=== PATIENT | female | born 1935 | race Caucasian/White ===

== ENCOUNTER 2016-12-30 21:34 | Emergency (ER) | payer MEDICARE ==
[~2016-12-30] VITALS: Ht 170.2 cm; Wt 109.1 kg
[~2016-12-30 21:34] MED LIST: ALB083NB3 NEB; AMLO10TA5 PO; ASPI81TA40 PO; CETI-263 PO; CHOL400T41 PO; CLOP75TA14 PO; FURO20TA PO; HYDR-3479 PO; HYDR25TA4 PO; LEVO50TA83 PO; LOSA25TA21 PO; METO100T PO; NITR0.4T6 SL; NYST1POW8 MC; POTA10CA42 PO; RANI75TA21 PO; ROSU40TA PO; SERT100T PO; SYMINH IH; TIOT18CA INH
[2016-12-30 22:02] VITALS: BP 154/64; PULSE 55; RESP 20; O2SAT 90
[2016-12-30 22:23] LABS: Mean Corpuscular Volume 88.5 fL (81-100); Platelet Count 144 bil/L (150-400)
[2016-12-30 22:24] LABS: BASOPHILS % (AUTO) 0.5 % (0-3); EOSINOPHILS % (AUTO) 2.7 % (0-5); MONOCYTES % (AUTO) 10.2 % (4-12); NEUTROPHILS % (AUTO) 73.6 % (40-74)
[2016-12-30 22:41] LABS: TROPONIN T 0.01 ug/L (0.0-0.011)
[2016-12-30 22:54] VITALS: BP 128/70; PULSE 51; RESP 18; O2SAT 91
--- NOTE | 2016-12-30 23:14 | ED.REPORT ---
HPI-Chest Pain 40 and Over Date of Service Dec 30, 2016 ED Provider: Nate Churchill MD An 81 year old female with a history of HTN and heart bypass surgery presents to the ED complaining of intermittent chest pain onset 3 days ago described as shooting that originally was in the left side of her chest but has since been present in the right side of her chest as well. The patient had massive indigestion after dinner earlier today. She feels like food is still in her throat and reports that her throat feels hot. Associated symptoms include SOB.She denies any dysphagia or cold sweats. Chest pain has gotten better since patient arrived, but her throat still feels hot. She is accompanied by her daughter. Nursing Notes Stated Complaint: CHEST PAIN,SOB Chief Complaint: Chest Pain Nursing Notes Reviewed: Yes Allergies: Coded Allergies: amoxicillin (Verified Allergy, Intermediate, rash, 12/30/16) doxycycline (Verified Allergy, Intermediate, itching rash, 12/30/16) Scheduled Albuterol-Expunged Drug, Do Not Renew! (Albuterol-Expunged Drug, Do Not Renew!) 2.5 Mg/3 Ml Nebu 1 INH NEB Q4HP AmLODIPine-Expunged Drug, Do Not Renew! (AmLODIPine-Expunged Drug, Do Not Renew! ) 10 Mg Tablet 10 MG PO DAILY Aspirin-Expunged Drug, Do Not Renew! (Aspirin-Expunged Drug, Do Not Renew!) 81 Mg Tab.chew 81 MG PO DAILY Budesonide/Formoterol 160-4.5 mcg Inh (Symbicort 160-4.5 mcg Inh) 1 Puff Inha 1 PUFF IH BID CHOLECALCIFEROL-Expunged Drug, Do Not Renew! (VITAMIN D-Expunged Drug, Do Not Renew!) 400 Unit Tablet 1,000 UNIT PO DAILY Cetirizine HCl (Cetirizine HCl) 10 Mg Tablet 10 MG PO HS Clopidogrel-Expunged Drug, Do Not Renew! (Plavix-Expunged Drug, Do Not Renew!) 75 Mg Tablet 75 MG PO DAILY Furosemide-Expunged Drug, Do Not Renew! (Furosemide-Expunged Drug, Do Not Renew! ) 20 Mg Tablet 20 MG PO DAILY Hydrochlorothiazide-Expunged, Do Not Renew! (Hydrochlorothiazide-Expunged, Do Not Renew!) 25 Mg Tablet 25 MG PO DAILY Levothyroxine-Expunged Drug, Do Not Renew! (Synthroid-Expunged Drug, Do Not Renew!) 50 Mcg Tablet 50 MCG PO DAILY Losartan-Expunged Drug, Do Not Renew! (Losartan-Expunged Drug, Do Not Renew!) 25 Mg Tablet 25 MG PO DAILY Metoprolol Tart-Expunged Drug, Do Not Renew! (Metoprolol Tart-Expunged Drug, Do Not Renew!) 100 Mg Tablet 100 MG PO DAILY Potassium Chloride (Potassium Chloride) 10 Meq Capsule.er 10 MEQ PO DAILY TAKE WITH FOOD Ranitidine Hcl (Zantac 75) 75 Mg Tablet 75 MG PO DAILY Rosuvastatin-Expunged Drug, Do Not Renew! (Crestor-Expunged Drug, Do Not Renew! ) 40 Mg Tablet 40 MG PO DAILY Sertraline-Expunged Drug, Choose New Med! (Sertraline-Expunged Drug, Choose New Med!) 100 Mg Tablet 100 MG PO DAILY Tiotropium Br-Expunged Drug, Do Not Renew! (Spiriva-Expunged Drug, Do Not Renew! ) 18 Mcg/Puff Pack [address] capsule into center of chamber; close mouthpiece; press and release the piercing button only once. Exhale completely then Inhale and holdbreath aslong as is comfortable; repeat once more before discarding thecapsule. Scheduled PRN Hydrocodone/Acetaminophen (Vicodin 5-300 mg Tablet) 1 Each Tablet 1 EACH PO Q4 PRN PRN For Pain Miscellaneous Medications Nitroglycerin SL (Nitroglycerin SL) 0.4 Mg Tab.subl 0.4 MG SL Nystatin (Nystatin) 1 Each Powder.ea. 1 EACH General Time Seen by MD: 23:12 Chief Complaint Chest pain Hx Obtained From: Patient, Other family... (daughter) Arrived By: Walk-in Sudden in Onset?: No Onset Occurred: 3 days ago Symptom Duration: Intermittent Severity: Current: Moderate Severity: Maximum: Moderate Recent Healthcare: No recent doctor visit Similar Sx Previous: No Past Medical History Past Medical History Notes: abdominal hernia Past Medical History 1. Hypertension. 2. Hyperlipidemia. 3. Hypothyroidism. 4. COPD on steroid inhaler. 5. Osteoarthritis. 6. Varicose vein stripping. 7. Lower-extremity edema. 8. Appendectomy. 9. Previous CVAs. 10. B12 deficiency. 11. History of DVT. 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 Throat feels hot. Denies dysphagia. Denies cold sweats. Respiratory: Reports: Shortness of breath Cardiovascular: Reports: Chest pain Complete sys rev & neg: except as marked. Physical Exam Physical Exam Notes: Initial Vital Signs Vital Signs (First) Date Time Temp Pulse Resp B/P Pulse Ox O2 Delivery O2 Flow Rate FiO2 12/30/16 22:02 36.8 55 20 154/64 90 Room Air 12/30/16 22:54 2 Initial VS: Reviewed, Vital signs normal General/Constitutional: Awake, Alert Respiratory / Chest: Atraumatic, Breath sounds NL, Breath sounds = bilat, No respiratory distress, No rales, No rhonchi, No wheezing Cardiovascular: Heart rate NL, Regular rhythm, Heart sounds NL, No gallop, No murmurs, No rubs 1+ pitting edema in ankles to about mid calf. Abdomen: No guarding, No rebound Neck: No JVD Skin: Warm, Dry Neurologic: Oriented X3, Speech NL Head / Eyes: Atraumatic, Normocephalic, PERRL, EOMI Upper Extremity / MS: Atraumatic, Full range of motion Interpretation & Diagnostics Lab Results Interpretation Result Diagram: 12/30/16 2210 12/30/16 2210 Test 12/30/16 22:10 12/31/16 00:30 White Blood Count 8.4th/mm3 (3.8-10.1) Red Blood Count 5.20mil/mm3 (3.90-5.20) Hemoglobin 15.6g/dL (12.0-15.6) Hematocrit 46.0% (35.0-46.0) Mean Corpuscular Volume 88.5fL (81-100) Mean Corpuscular Hemoglobin 30.0pg (27.0-35.0) Mean Corpuscular Hemoglobin Concent 33.9% (32.0-37.0) Red Cell Distribution Width 13.8% (12.3-15.4) Platelet Count 144bil/L (150-400) Neutrophils (%) (Auto) 73.6% (40-74) Lymphocytes (%) (Auto) 12.9% (14-46) Monocytes (%) (Auto) 10.2% (4-12) Eosinophils (%) (Auto) 2.7% (0-5) Basophils (%) (Auto) 0.5% (0-3) Band Neutrophils % 0% (1-5) Sodium Level 141mEq/L (134-144) Potassium Level 4.3mEq/L (3.5-5.2) Chloride Level 104mEq/L (97-108) Carbon Dioxide Level 22mmol/L (18-29) Blood Urea Nitrogen 15mg/dL (8-27) Creatinine 0.95mg/dL (0.57-1.00) Estimat Glomerular Filtration Rate 80mL/min (>59) Glucose Level 92mg/dL (60-99) Calcium Level 9.7mg/dL (8.5-10.1) Magnesium Level 2.0mg/dL (1.6-2.6) Total Bilirubin 0.8mg/dL (0.0-1.2) Aspartate Amino Transf (AST/SGOT) 19U/L (0-50) Alanine Aminotransferase (ALT/SGPT) 11U/L (0-32) Alkaline Phosphatase 78U/L (25-165) Total Protein 6.4g/dL (6.4-8.4) Albumin 4.0g/dL (3.4-5.0) Hold Stubbs Top Tube Received (Received) Troponin T 0.010ug/L (0.0-0.011) Lab values outside NL range: no clinical significance. Lab Results Interpretation: Troponin negative 2 ECG Interpretation ECG Interpretation: Rate is 56. No acute changes. Time: 22:01 Interpreted by: ED physician ECG Interpretation: Rate is 52. Sinus rhythm. Incomplete right bundle branch block. Low voltage, precordial leads. LVH with IVCD and secondary repol abnrm. Unchanged. Time: 00:14 Interpreted by: ED physician X-Ray Chest Interpretation Chest Xray Interpretation: IMPRESSION: Normal 12/30/2016, 2344 Interpretation / Wet Read by: Wet read ED physician Re-Eval/Medical Decision Med Decision/Clinical Course 81-year-old female with a history of coronary artery disease presents with burning pain in her upper sternal and suprasternal area. Chest x-ray, EKG 2, and troponin 2 are all negative. Her burning pain in her upper esophagus improved markedly with Mylanta. I do not feel this pain represents cardiac event. She will be discharged home on antacids and well return if she has recurrent or persistent symptoms. Source of Hx: Old records Time of Eval: 23:55 Re-Evaluation/Progress Note: Rechecked patient and explained normal test results. Explained plan to perform repeat troponin test. Patient denies any current discomfort and is swallowing ok. Her throat still feels strange. Time of Eval: 01:35 Re-Evaluation/Progress Note: Explained repeat test results. Explained diagnosis, and plan for discharge. Patient understands and agrees with the plan. All questions addressed. Counseled Regarding: Diagnosis, Lab results, Need for follow-up, When/why to return to ED Discharge & Departure Primary Impression: Chest pain with low risk of acute coronary syndrome Additional Impression: Esophageal problem Disposition: Home Discharge Condition All VS Reviewed: Yes Condition: Stable Patient Instructions: Chest Pain (ED) Additional Instructions: Your chest x-ray, EKG 2, and troponin heart enzyme test 2 are all negative. This pain does not appear to be due to your heart. I suspect that there is esophageal irritation. Continue antacids. Follow-up with your regular doctor as needed. Return here if you worsen significantly over the weekend. Referrals: Kadie Angel MD (PCP) Ximena Attestation Portions of this note were transcribed by Naga Pike. I, Dr. Churchill personally performed the history, physical exam and medical decision-making; I reviewed and confirmed the accuracy of the information in the transcribed note. Signed by: Ximena Beverly, 12/31/2016, 0543 copies to: Kadie Angel MD, Howard L MD Dec 30, 2016 23:14 Naga Pike Dec 30, 2016 23:21
[2016-12-30] MEDS ORDERED: Alum-Mag Hydrox-Simeth 30 mL Suspension PO ONE (23:25)
[2016-12-31 00:03] VITALS: BP 140/83; PULSE 51; RESP 18; O2SAT 91
[2016-12-31 01:51] VITALS: BP 165/60; PULSE 52; RESP 18; O2SAT 91
--- NOTE | 2016-12-31 11:57 | DRSVH ---
PROCEDURE: X-RAY CHEST ONE VIEW, PORTABLE ([id number]) INDICATIONS: CP TECHNIQUE: One view of the chest was acquired. COMPARISON: [facility], CR, XR CHEST 2VW, 08/28/2015, 15:35. FINDINGS: Surgical changes and devices: Previous sternotomy. Probable CABG procedure. 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 Lungs and pleura: No pleural effusions or pneumothorax. Lungs are clear. Mediastinum: Mediastinal contours appear normal. Heart size is normal. Bones and chest wall: No suspicious bony lesions. Overlying soft tissues appear unremarkable. IMPRESSION: Acute disease is not seen in any subarachnoid portable chest. Dictated by: Jagdish Maher M.D. on 12/31/2016 at 11:43 Approved by: Jagdish Maher M.D. on 12/31/2016 at 11:55
== END 2016-12-31 01:51 | disposition home or self-care (01) ==
LOC: SED 21:34
DX: R07.9 Chest pain, unspecified (principal); R68.89 Other general symptoms and signs; I10 Essential (primary) hypertension; E78.5 Hyperlipidemia, unspecified; Z87.891 Personal history of nicotine dependence; Z95.1 Presence of aortocoronary bypass graft; Z79.82 Long term (current) use of aspirin; Z79.899 Other long term (current) drug therapy; Z88.1 Allergy status to other antibiotic agents

== ENCOUNTER 2017-04-24 02:46 | Inpatient (IN) | payer MEDICARE ==
[2017-04-24] VITALS (11 sets, daily range): BP systolic 93–157; BP diastolic 47–80; PULSE 59–88; RESP 16–24; O2SAT 90–97
[~2017-04-24] VITALS: Ht 170.2 cm; Wt 110.2 kg
--- NOTE | 2017-04-24 02:51 | ED.REPORT ---
HPI-General Illness Date of Service Apr 24, 2017 ED Provider: Dr. Ruggiero 82 y/o female with a hx of HTN, hyperlipidemia, hypothyroidism, and COPD presents to the ED complaining of weakness, onset today. Associated sx include vomiting, shaking chills, severe headache and dizziness. She denies chest pain. The pt's right leg is also erythematous and swollen. She states she was scratched by a cat on the right leg a week ago. Nursing Notes Stated Complaint: VOMITING Chief Complaint: Extremity Trauma Nursing Notes Reviewed: Yes Allergies: Coded Allergies: amoxicillin (Verified Allergy, Intermediate, rash, 12/30/16) doxycycline (Verified Allergy, Intermediate, itching rash, 12/30/16) Sulfa (Sulfonamide Antibiotics) (Verified Allergy, Unknown, 04/24/17) Scheduled Albuterol-Expunged Drug, Do Not Renew! (Albuterol-Expunged Drug, Do Not Renew!) 2.5 Mg/3 Ml Nebu 1 INH NEB Q4HP AmLODIPine-Expunged Drug, Do Not Renew! (AmLODIPine-Expunged Drug, Do Not Renew! ) 10 Mg Tablet 10 MG PO DAILY Aspirin-Expunged Drug, Do Not Renew! (Aspirin-Expunged Drug, Do Not Renew!) 81 Mg Tab.chew 81 MG PO DAILY Budesonide/Formoterol 160-4.5 mcg Inh (Symbicort 160-4.5 mcg Inh) 1 Puff Inha 1 PUFF IH BID CHOLECALCIFEROL-Expunged Drug, Do Not Renew! (VITAMIN D-Expunged Drug, Do Not Renew!) 400 Unit Tablet 1,000 UNIT PO DAILY Cetirizine HCl (Cetirizine HCl) 10 Mg Tablet 10 MG PO HS Clopidogrel-Expunged Drug, Do Not Renew! (Plavix-Expunged Drug, Do Not Renew!) 75 Mg Tablet 75 MG PO DAILY Furosemide-Expunged Drug, Do Not Renew! (Furosemide-Expunged Drug, Do Not Renew! ) 20 Mg Tablet 20 MG PO DAILY Hydrochlorothiazide-Expunged, Do Not Renew! (Hydrochlorothiazide-Expunged, Do Not Renew!) 25 Mg Tablet 25 MG PO DAILY Levothyroxine-Expunged Drug, Do Not Renew! (Synthroid-Expunged Drug, Do Not Renew!) 50 Mcg Tablet 50 MCG PO DAILY Losartan-Expunged Drug, Do Not Renew! (Losartan-Expunged Drug, Do Not Renew!) 25 Mg Tablet 25 MG PO DAILY Metoprolol Tart-Expunged Drug, Do Not Renew! (Metoprolol Tart-Expunged Drug, Do Not Renew!) 100 Mg Tablet 100 MG PO DAILY Potassium Chloride (Potassium Chloride) 10 Meq Capsule.er 10 MEQ PO DAILY TAKE WITH FOOD Ranitidine Hcl (Zantac 75) 75 Mg Tablet 75 MG PO DAILY Rosuvastatin-Expunged Drug, Do Not Renew! (Crestor-Expunged Drug, Do Not Renew! ) 40 Mg Tablet 40 MG PO DAILY Sertraline-Expunged Drug, Choose New Med! (Sertraline-Expunged Drug, Choose New Med!) 100 Mg Tablet 100 MG PO DAILY Tiotropium Br-Expunged Drug, Do Not Renew! (Spiriva-Expunged Drug, Do Not Renew! ) 18 Mcg/Puff Pack [address] capsule into center of chamber; close mouthpiece; press and release the piercing button only once. Exhale completely then Inhale and holdbreath aslong as is comfortable; repeat once more before discarding thecapsule. Scheduled PRN Hydrocodone/Acetaminophen (Vicodin 5-300 mg Tablet) 1 Each Tablet 1 EACH PO Q4 PRN PRN For Pain Miscellaneous Medications Nitroglycerin SL (Nitroglycerin SL) 0.4 Mg Tab.subl 0.4 MG SL Nystatin (Nystatin) 1 Each Powder.ea. 1 EACH General Time Seen by MD: 02:50 Chief Complaint Weakness Hx Obtained From: Patient Arrived By: Walk-in Sudden in Onset?: Yes Onset Occurred: 9 - 12 hours ago Symptom Duration: Since onset Location: : Head Quality: Painful Radiation: : Does not radiate Severity: Current: Severe Severity: Maximum: Severe Recent Healthcare: Recent doctor visit Past Medical History Past Medical History Notes: abdominal hernia Past Medical History 1. Hypertension. 2. Hyperlipidemia. 3. Hypothyroidism. 4. COPD on steroid inhaler. 5. Osteoarthritis. 6. Varicose vein stripping. 7. Lower-extremity edema. 8. Appendectomy. 9. Previous CVAs. 10. B12 deficiency. 11. History of DVT. 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 Physical Exam Vital Signs Vital Signs Date Time Temp Pulse Resp B/P Pulse Ox O2 Delivery O2 Flow Rate FiO2 04/24/17 04:15 81 24 139/56 95 Nasal Cannula 2 04/24/17 02:49 37.4 85 24 157/50 91 Room Air Initial VS: Reviewed Head / Eyes: Atraumatic, Normocephalic Neck: Supple, Non-tender, Full range of motion Cardiovascular: Regular rate & rhythm, Heart sounds normal, Intact distal pulses Abdomen / GI: Soft, Non-tender Skin: Warm, Dry, No cyanosis Neurologic: Alert, Oriented, Nonfocal General/Constitutional: Awake, Alert, Cooperative Distress / Hydration: Positive: Distress mild Pt is febrile, tremulous and flushed. ENT: Atraumatic, Airway patent Mouth: Positive: Mucous membranes dry Respiratory / Chest: Atraumatic Mildly tachypneic. Upper Extremities Upper Extremity / MS: Atraumatic, Full range of motion, No swelling, Non-tender , No erythema, No deformity, Neurologic intact, Vascular intact Lower Extremity / Pelvis / MS: Atraumatic, Full range of motion, No deformity, Neurologic intact, Vascular intact Lesion and marginated cellulitis on the anterior aspect of the right boyd that is spreading around circumferentially. Less established marginated erythema extending up to the knee from the base of the boyd. Interpretation & Diagnostics Lab Results Interpretation Result Diagram: 04/24/17 0300 04/24/17 0300 Test 04/24/17 03:00 04/24/17 03:35 White Blood Count 16.1th/mm3 (3.8-10.1) Red Blood Count 5.25mil/mm3 (3.90-5.20) Hemoglobin 15.9g/dL (12.0-15.6) Hematocrit 46.4% (35.0-46.0) Mean Corpuscular Volume 88.4fL (81-100) Mean Corpuscular Hemoglobin 30.3pg (27.0-35.0) Mean Corpuscular Hemoglobin Concent 34.3% (32.0-37.0) Red Cell Distribution Width 14.0% (12.3-15.4) Platelet Count 134bil/L (150-400) Neutrophils (%) (Auto) 91.0% (40-74) Lymphocytes (%) (Auto) 4.2% (14-46) Monocytes (%) (Auto) 4.2% (4-12) Eosinophils (%) (Auto) 0.2% (0-5) Basophils (%) (Auto) 0.1% (0-3) Erythrocyte Sedimentation Rate 2mm/hr (0-40) Prothrombin Time 10.9sec (8.1-12.5) Prothromb Time International Ratio 1.02ratio Activated Partial Thromboplast Time 24.4sec (22.8-33.0) D-Dimer 1.87mg/L FEU (<0.50) Sodium Level 141mEq/L (134-144) Potassium Level 3.8mEq/L (3.5-5.2) Chloride Level 102mEq/L (97-108) Carbon Dioxide Level 22mmol/L (18-29) Blood Urea Nitrogen 12mg/dL (8-27) Creatinine 0.68mg/dL (0.57-1.00) Estimat Glomerular Filtration Rate 118mL/min (>59) Glucose Level 121mg/dL (60-99) Calcium Level 9.4mg/dL (8.5-10.1) Phosphorus Level 1.4mg/dL (2.5-4.9) Magnesium Level 1.7mg/dL (1.6-2.6) Total Bilirubin 0.9mg/dL (0.0-1.2) Aspartate Amino Transf (AST/SGOT) 26U/L (0-50) Alanine Aminotransferase (ALT/SGPT) 16U/L (0-32) Alkaline Phosphatase 97U/L (25-165) Troponin T 0.079ug/L (0.0-0.011) Pro-B-Type Natriuretic Peptide 730pg/mL (0-738) Total Protein 6.5g/dL (6.4-8.4) Albumin 4.1g/dL (3.4-5.0) Lipase 10U/L (13-60) Procalcitonin 0.47ng/mL (0.00-0.08) Urine Color Yellow (YELLOW) Urine Appearance Clear (CLEAR,HAZY) Urine pH 6.5 (5.0-8.0) Urine Specific Gepp 1.010 (1.003-1.035) Urine Protein Negativemg/dL (NEG,TRACE) Urine Glucose (UA) Negativemg/dL (NEGATIVE) Urine Ketones Negativemg/dL (NEGATIVE) Urine Occult Blood Negative (NEGATIVE) Urine Nitrite Negative (NEGATIVE) Urine Bilirubin Negative (NEGATIVE) Urine Urobilinogen 1.0mg/dL (NORMAL) Urine Leukocyte Esterase Negative (NEGATIVE) Urine RBC 0-2/hpf (0-2) Urine WBC 0-5/hpf (0-5) Urine Epithelial Cells Occasional/hpf (NONE-MOD) Urine Crystals None seen (NONE SEEN) Urine Bacteria Few/hpf (NONE-FEW) Urine Hyaline Casts None/lpf (NONE) Urine Granular Casts None seen (NONE SEEN) Urine Waxy Casts None seen (NONE SEEN) Urine Red Blood Cell Casts None seen (NONE SEEN) Urine White Blood Cell Casts None seen (NONE SEEN) Urine Mucus None seen (None Seen) Urine Trichomonas None seen (NONE SEEN) Urine Yeast None (NONE SEEN) Urinalysis Comment None Urine Culture Reflexed Not indicated X-Ray Chest Interpretation Chest Xray Interpretation: Normal View: Portable, 1 view Interpretation / Wet Read by: Wet read ED physician CT Chest Interpretation Conclusion: No evidence of pulmonary embolism or aortic aneurysm or dissection. No acute abnormality. Postoperative changes of coronary artery bypass and cholecystectomy. Minimal patchy opacity in the left upper lobe, possible atelectasis or scarring but please see the final report concerning comparison to prior exams or any recommended additional evaluation or followup. Signed by Dr. Netta Hart 04/24/17 05:18 Study type: CT pulm angiogram Interpretation / Wet Read by: Interpret - Radiologist Re-Eval/Medical Decision Med Decision/Clinical Course 82-year-old with COPD/asthma, presents with bright red leg, and the sudden onset of chills, weakness, generalized malaise, and apparent early sepsis. Not hypotensive or tachycardic at this point, but lactate is elevated, and she has an obvious source of infection. She is having active rigors here. Bacteremia strongly suspected. Cultured and treated empirically for soft tissue infection with meropenem, vancomycin, clindamycin per protocol. IV fluid per protocol and repeat lactate in two hours. No other apparent source. D-dimer is elevated and a CT angiogram was done and is negative for acute pulmonary embolus. Source of Hx: Old records Time of Eval: 04:50 Re-Evaluation/Progress Note: Rechecked pt. Discussed lab results, imaging results,diagnosis and plan to admit. Pt understands and agrees with the plan for admission. All questions addressed. Consultation : Referral / Consult Name: Addison Feldman MD Consulted With: Hospitalist Call Returned at: 04:25 Medical Practice Assistant: Will see patient, Agrees with eval, Agrees with plan, Accepts admit Counseled Regarding: Diagnosis, Lab results, Need for admission Discharge & Departure Primary Impression: Sepsis Sepsis type: sepsis due to unspecified organism Qualified Code: A41.9 - Sepsis, unspecified organism Additional Impression: Cellulitis Site of cellulitis: extremity Site of cellulitis of extremity: lower extremity Laterality: right Qualified Code: L03.115 - Cellulitis of right lower limb Disposition: ADMITTED TO HOSPITAL Discharge Condition All VS Reviewed: Yes Condition: Improved Referrals: Kadie Angel MD (PCP) Crit Care Except Billable Proc Time Spent: 30-74 minutes Services Performed: Patient management by me, Time spent at bedside, Reviewing test results, Reviewing imaging, Discussing patient care, Documentation in record, Time with fam/surrogate, Other (arranging admission) Scribe Attestation Portions of this note were transcribed by Kamila William. I,, personally performed the history, physical exam and medical decision-making;I reviewed and confirmed the accuracy of the information in the transcribed note. Signed by Ximena Wing. 04/24/17 copies to: Kadie Angel MD, Christopher W MD Apr 24, 2017 02:51 Kamila William Apr 24, 2017 03:02
[2017-04-24] MEDS ORDERED: 0.9% Sodium Chloride 1,000 ML IV ONE (03:04)
[2017-04-24] MEDS ORDERED: Meropenem Inj 1,000 MG in 0.9% Sodium Chloride 100 ML IV ONE (03:05)
[2017-04-24] MEDS ORDERED: Clindamycin Inj 900 MG in IV Premix 1 EACH IV ONE (03:05)
[2017-04-24] MEDS ORDERED: Vancomycin Dose per Pharmacist XX ONE (03:05)
[2017-04-24 03:15] LABS: BASOPHILS % (AUTO) 0.1 % (0-3); EOSINOPHILS % (AUTO) 0.2 % (0-5); MONOCYTES % (AUTO) 4.2 % (4-12); Mean Corpuscular Hemoglobin 30.3 pg (27.0-35.0); Mean Corpuscular Volume 88.4 fL (81-100); Platelet Count 134 bil/L (150-400)
[2017-04-24] MEDS ORDERED: Vancomycin Inj 2,000 MG in 0.9% Sodium Chloride 500 ML IV ONE (03:15)
[2017-04-24 03:36] LABS: D-Dimer 1.87 mg/L FEU (<0.50); INR 1.02 ratio
[2017-04-24 03:39] LABS: ERYTHROCYTE SEDIMENTATION RATE 2 mm/hr (0-40)
[2017-04-24 04:03] LABS: APPEARANCE,URINE CLEAR (CLEAR,HAZY); COLOR,URINE YELLOW (YELLOW); OCCULT BLOOD,URINE NEGATIVE (NEGATIVE); PH,URINE 6.5 (5.0-8.0)
[2017-04-24 04:06] LABS: Magnesium 1.7 mg/dL (1.6-2.6); Phosphorus 1.4 mg/dL (2.5-4.9); TROPONIN T 0.079 ug/L (0.0-0.011)
[2017-04-24] MEDS ORDERED: 0.9% Sodium Chloride 1,000 ML IV SCH (04:29)
[2017-04-24] MEDS ORDERED: Polyethylene Glycol (PEG) 17 Gm Powder PO PRN (04:30)
[2017-04-24] MEDS ORDERED: Alum-Mag Hydrox-Simeth 30 mL Suspension PO PRN (04:30)
[2017-04-24] MEDS: 0.9% Sodium Chloride 1,000 ML IV SCH ×3 (04:39→20:29)
[2017-04-24] MEDS: Ondansetron 2 mg/mL 2 mL Inj IVPUSH PRN (04:44)
--- NOTE | 2017-04-24 06:08 | PCM.CONPHA ---
Subjective Date of Service: Apr 24, 2017 Requesting Provider: Addison Feldman MD Reason for Pharmacy Consult: Vancomycin Dosing Objective Vital Signs Date Time Temp Pulse Resp B/P Pulse Ox O2 Delivery O2 Flow Rate FiO2 04/24/17 05:46 36.9 88 18 131/80 94 Nasal Cannula 2.00 04/24/17 05:42 88 04/24/17 05:07 79 20 120/66 97 Room Air 04/24/17 04:15 81 24 139/56 95 Nasal Cannula 2 04/24/17 02:49 37.4 85 24 157/50 91 Room Air Weight (Kilograms): 109.500 Height (Feet): 5 Height (Inches): 7.00 Test 04/24/17 03:00 04/24/17 03:35 White Blood Count 16.1th/mm3 (3.8-10.1) Red Blood Count 5.25mil/mm3 (3.90-5.20) Hemoglobin 15.9g/dL (12.0-15.6) Hematocrit 46.4% (35.0-46.0) Mean Corpuscular Volume 88.4fL (81-100) Mean Corpuscular Hemoglobin 30.3pg (27.0-35.0) Mean Corpuscular Hemoglobin Concent 34.3% (32.0-37.0) Red Cell Distribution Width 14.0% (12.3-15.4) Platelet Count 134bil/L (150-400) Neutrophils (%) (Auto) 91.0% (40-74) Lymphocytes (%) (Auto) 4.2% (14-46) Monocytes (%) (Auto) 4.2% (4-12) Eosinophils (%) (Auto) 0.2% (0-5) Basophils (%) (Auto) 0.1% (0-3) Erythrocyte Sedimentation Rate 2mm/hr (0-40) Prothrombin Time 10.9sec (8.1-12.5) Prothromb Time International Ratio 1.02ratio Activated Partial Thromboplast Time 24.4sec (22.8-33.0) D-Dimer 1.87mg/L FEU (<0.50) Sodium Level 141mEq/L (134-144) Potassium Level 3.8mEq/L (3.5-5.2) Chloride Level 102mEq/L (97-108) Carbon Dioxide Level 22mmol/L (18-29) Blood Urea Nitrogen 12mg/dL (8-27) Creatinine 0.68mg/dL (0.57-1.00) Estimat Glomerular Filtration Rate 118mL/min (>59) Glucose Level 121mg/dL (60-99) Lactic Acid Level 3.3mmol/L (0.4-2.0) Calcium Level 9.4mg/dL (8.5-10.1) Phosphorus Level 1.4mg/dL (2.5-4.9) Magnesium Level 1.7mg/dL (1.6-2.6) Total Bilirubin 0.9mg/dL (0.0-1.2) Aspartate Amino Transf (AST/SGOT) 26U/L (0-50) Alanine Aminotransferase (ALT/SGPT) 16U/L (0-32) Alkaline Phosphatase 97U/L (25-165) Troponin T 0.079ug/L (0.0-0.011) Pro-B-Type Natriuretic Peptide 730pg/mL (0-738) Total Protein 6.5g/dL (6.4-8.4) Albumin 4.1g/dL (3.4-5.0) Lipase 10U/L (13-60) Procalcitonin 0.47ng/mL (0.00-0.08) Urine Color Yellow (YELLOW) Urine Appearance Clear (CLEAR,HAZY) Urine pH 6.5 (5.0-8.0) Urine Specific Morris 1.010 (1.003-1.035) Urine Protein Negativemg/dL (NEG,TRACE) Urine Glucose (UA) Negativemg/dL (NEGATIVE) Urine Ketones Negativemg/dL (NEGATIVE) Urine Occult Blood Negative (NEGATIVE) Urine Nitrite Negative (NEGATIVE) Urine Bilirubin Negative (NEGATIVE) Urine Urobilinogen 1.0mg/dL (NORMAL) Urine Leukocyte Esterase Negative (NEGATIVE) Urine RBC 0-2/hpf (0-2) Urine WBC 0-5/hpf (0-5) Urine Epithelial Cells Occasional/hpf (NONE-MOD) Urine Crystals None seen (NONE SEEN) Urine Bacteria Few/hpf (NONE-FEW) Urine Hyaline Casts None/lpf (NONE) Urine Granular Casts None seen (NONE SEEN) Urine Waxy Casts None seen (NONE SEEN) Urine Red Blood Cell Casts None seen (NONE SEEN) Urine White Blood Cell Casts None seen (NONE SEEN) Urine Mucus None seen (None Seen) Urine Trichomonas None seen (NONE SEEN) Urine Yeast None (NONE SEEN) Urinalysis Comment None Urine Culture Reflexed Not indicated Assessment/Plan Assessment/Plan A: * Vancomycin dosing by pharmacy for 82 y/o woman * She is also being started on meropenem * Estimated CrCl for this patient is 78 mL/min (Cockcroft & Gault using AdjBW) * Estimated vancomycin half-life is 10 hours and Vd is 76 liters P: * Give one 2000 mg vancomycin IV loading dose * Start vancomycin 1250 mg IV every 12 hours after loading dose * Target a vancomycin trough range of 15 - 20 mcg/mL for now * Draw a trough level prior to the fourth dose Thank you. Pharmacy will continue to follow this patient. Fabby Rubio Apr 24, 2017 06:08
[2017-04-24] MEDS: Vancomycin Dose per Pharmacist XX SCH (08:30)
[2017-04-24] MEDS: Sodium Chloride LOK Flush 10 mL Syringe IVFLUSH SCH ×2 (08:30→16:30)
--- NOTE | 2017-04-24 08:57 | DRSVH ---
PROCEDURE: X-RAY CHEST ONE VIEW, PORTABLE ([id number]) INDICATIONS: shaking chills, cellulitis leg, sepsis TECHNIQUE: One view of the chest was acquired. COMPARISON: [facility], CT, CT ANGIO CHEST PE, 04/24/2017, 5:03. [facility], CR, XR CHEST 1VW (PORTABLE), 12/30/2016, 22:28. FINDINGS: Surgical changes and devices: Post median sternotomy and surgical clips projected over the lower neck and right lung apex. Right upper quadrant surgical clips. Lungs and pleura: No pleural effusions or pneumothorax. Lung volumes are low and there is minimal m edial basilar patchy airspace opacity. Mediastinum: Mediastinal contours appear normal. Heart size is normal. Bones and chest wall: No suspicious bony lesions. Overlying soft tissues appear unremarkable. IMPRESSION: Minimal basilar opacity likely atelectasis. Dictated by: Deny Lazaro RRAnge Interpreted: Melody Maxwell MD on 04/24/2017 at 8:54 Transcribed by: DELVIN on 04/24/2017 at 8:56 Approved by: Melody Maxwell M.D. on 04/24/2017 at 9:21
--- NOTE | 2017-04-24 09:09 | DRSVH ---
PROCEDURE: CT ANGIO CHEST PULMONARY EMBOLISM ([id number]) INDICATIONS: elevated dimer TECHNIQUE: After the administration of intravenous contrast, 2 mm thick sections acquired from the pulmonary api elvia to the posterior costophrenic angles. 3-dimensional maximum intensity projection (MIP) coronal a nd sagittal reformats were then acquired through the thorax. For radiation dose reduction, the follo wing was used: automated exposure control, adjustment of mA and/or kV according to patient size. COMPARISON: [facility], CT, CHEST ANGIO-PE, 08/25/2010, 19:19. [facility], CT, CT CHEST WO CON, 04/16/2015, 14:14. [facility], CT, CHEST ANGIO-PE, 07/10/2012, 23:45 . FINDINGS: Image quality: Excellent. Pulmonary arteries: Pulmonary arteries are normal in size, and demonstrate no intraluminal filling d efects to suggest central pulmonary embolism. Lungs and pleura: There is a 7 mm diameter pulmonary nodule at the anterior right apex (series 5, eder ge 9). This is new when compared with the study dated 04/16/15. There is mild centrilobular emphysema with an apical predominance. Multiple 2-3 mm ill-defined nodules are present within the lateral aspec t of the right middle lobe (series 5, image 25). Atelectasis is present in the dependent lung bases. Mild patchy pulmonary opacities are present within the posterior aspect of the left upper lobe, sligh tly increased in conspicuity when compared with the study dated 04/16/15 and the study dated 07/10/12. A no pleural effusion or pneumothorax. Mediastinum: Heart size is normal, without pericardial effusion. No mediastinal or hilar adenopathy . Thoracic aorta is normal in caliber and enhancement. Scattered atheromatous calcifications are pre sent within the aortic arch. Esophagus is normal in caliber, without hiatal hernia. Bones and chest wall: No suspicious bony lesions. Ribs and thoracic spine appear intact throughout. Thyroid gland is partially visualized and is unremarkable. No axillary or supraclavicular adenopat hy. Abdomen: Visualized upper abdominal solid organs appear normal in the early arterial phase of enhanc ement. IMPRESSION: 1. No acute pulmonary embolus. 2. 7 mm diameter right apical nodule not visualized on prior comparisons. Please see followup guideli quirino below. Consider followup at 3-6 months based on the risk stratification of the patient. 3. Focal nodular air space opacities in the right middle lobe. Attention should be directed to this r egion on future surveillance studies. Differential considerations include neoplasm and mild airspace disease. 4. Slow increase in the conspicuity of the patchy pulmonary opacities at the posterior aspect of the left upper lobe when compared with studies dating back to 2009. Although this may represent pulmonary scarring, indolent neoplasm cannot be excluded. Fleischner Society criteria for SOLID lung nodule followup. Nodule size (mm)Low-risk patientHigh-risk [id number] follow-up neededFollow-up at 12 mo; if no ledezma e, no further follow-up>5-8Agxbzc-pi CT at 12 mo; if no change, no further follow-up needed.Initial f ollow-up CT at 6-12 mo, then 18-24 mo if no change. >6-8Initial follow-up CT at 6-12 mo, then 18-24 mo if no change. Initial follow-up CT at 3-6 mo, then 9-12 mo and 24 mo if no change. >8Follow-up CT at 3, 9, 24 mo. Or PET and/or biopsy.Same as for low-risk pts. Fleischner Society criteria for SUB-SOLID lung nodule followup. Solitary pure ground-glass nodules5 mm or lessNo followup needed. >5 mm3 mo follow-up CT to confirm persistence. Then annual CT for 3 years. Part-solid nodules3 mo follow-up CT to confirm persistence . If persistent with solid component <5 mm, annual CT for at least 3 years. If solid component is 5 mm or more, biopsy or surgical resection. Consider PET-CT for lesions > 10 mm. Multiple sub-solid nodulesPure ground glass nodules [address] at 2 and 4 years. Pure ground glass nodules >5 mm without dominant lesion. [address] to confirm persistence, then annual followup CT for at least 3 years. Dominant nodule(s) with part-solid or solid component. [address] to confirm persistence. If persistent, consider biopsy or surgical resection, justus if lesions have >5 m m solid component. Dictated by: Melody Maxwell M.D. on 04/24/2017 at 8:55 Approved by: Melody Maxwell M.D. on 04/24/2017 at 9:07
[2017-04-24] MEDS ORDERED: METO-274 PO (10:01)
[2017-04-24] MEDS ORDERED: POLY17PO2 PO (10:01)
[2017-04-24] MEDS ORDERED: BECL8.7A5 INHALATION (10:01)
[2017-04-24] MEDS ORDERED: CHOL200047 PO (10:16)
[2017-04-24] MEDS ORDERED: ACET325T51 PO (10:16)
[2017-04-24] MEDS ORDERED: BIOT10004 PO (10:16)
[2017-04-24] MEDS: Meropenem Inj 1,000 MG in 0.9% Sodium Chloride 100 ML IV SCH ×2 (12:43→20:30)
[2017-04-24] MEDS: Heparin 5,000 Unit/mL Inj SUBQ SCH ×2 (12:44→18:14)
--- NOTE | 2017-04-24 15:42 | PCM.HPMED ---
Subjective Date of Service Apr 24, 2017 Primary Provider: Admitting Physician: Addison Feldman MD Primary Care Physician: Kadie Angel MD Attending Physician: Deep Gallo MD Chief Complaint: Right leg redness History of Present Illness: 82 year old female who is infrequently active with a hx of COPD on 2L home O2, HTN, hyperlipidemia, hypothyroid, stable angina, CABG with stent placement, who presents to the hospital after being scratched by her cat, with three days of increased lower right leg redness and swelling, with associated weakness, chills , nausea, and vomiting. 03/29, her cat scratched her right leg. Subsequently, she began to have redness and oozing from her leg. She saw her PCP on 04/05, was diagnosed with cellulitis , and given a prescription of Keflex. She took several days of the antibiotic and the cellulitis began to improve. She stopped the Keflex early as she noted improvement in symptoms. on 04/21, her cat scratched her right leg. The leg then began to have increased redness and swelling on the anterior and lateral calf. She reports that the leg feels tender and rates her pain as mild, constant 6/10. She denies any oozing or bleeding from the rash. On 04/22 she developed increased generalized weakness , nausea, and vomiting. She describes rigorous chills at home. She was unable to take her home medications due to her nausea. She has had no falls or other trauma to her leg. Denies any worsening shortness of breath, abdominal pain, constipation, diarrhea, new chest pain or tightness, recent travel or sick contacts. In the ED, she was afebrile, but having rigors. Leukocytosis 16.1, lactate 3.3. CXR negative. Positive ddimer, CTA PE negative. UA negative. She was started on normal saline, Vancomycin and meropenem to treat for presumed cellulitis and dehydration. Review of Systems: ROS negative except as noted in history of present illness. Allergies Coded Allergies: amoxicillin (Verified Allergy, Intermediate, rash, 12/30/16) doxycycline (Verified Allergy, Intermediate, itching rash, 12/30/16) Sulfa (Sulfonamide Antibiotics) (Verified Allergy, Unknown, 04/24/17) Home Medications Budesonide/Formoterol 160-4.5 mcg Inh (Symbicort 160-4.5 mcg Inh) 1 Puff Inha 1 PUFF IH BID Cetirizine HCl (Cetirizine HCl) 10 Mg Tablet 10 MG PO HS Potassium Chloride (Potassium Chloride) 10 Meq Capsule.er 10 MEQ PO DAILY TAKE WITH FOOD Ranitidine Hcl (Zantac 75) 75 Mg Tablet 75 MG PO DAILY PMH HTN hyperlipidemia hypothyroidism COPD CAD Varicose veins Surgical History Cholecystectomy Appendectomy CABG with two stents placed Back surgery Family History She has three "healthy" children. . Social History Hx Alcohol Use: No Hx Substance Use: No Hx Tobacco Use: Yes (quit 1996) Smoking Status: Former Smoker Years of Smokin Living Arrangement: with Family (daughter) Exam Vital Signs Vital Sign - Last Date Time Temp Pulse Resp B/P Pulse Ox O2 Delivery O2 Flow Rate FiO2 04/24/17 12:15 36.5 63 18 115/49 91 Nasal Cannula 2.00 Intake and Output 04/23/17 04/23/17 04/24/17 Cumulative From/Thru 15:00 23:00 07:00 04/24/17 02:49 - 04/24/17 05:48 Intake Total 1000 ml 1000 ml Balance 1000 ml 1000 ml Intake IV Total 1000 ml 1000 ml Exam Gen: Awake, very pleasant, obese, elderly woman. No distress. Resting comfortably on the gurney. HEENT: PERRL, EOMI, no scleral icterus, no conjunctival pallor, no pharyngeal erythema or exudate. Neck: supple, non tender, no thyromegaly, no JVD CV: RRR, normal S1/2. no murmurs rubs or gallops. Resp: coarse breath sounds bilaterally. Speaking in full sentences on 1-2L O2 NC. No wheezing, rales, or rhonchi. Abd: Soft, non tender, no rebound or guarding, no organomegaly Extremities: Moving all extremities well. Trace edema of the Right leg. LL tender palpation bilaterally. Neuro: CN 2-12 grossly intact, no focal neurologic deficit. Psych: Pleasant and appropriate mood and affect Skin: Large tender area of diffuse petechial erythema extending from the right lateral malleolus on the anterior and lateral sides of the R lower leg up to the fibular head. No erythema on the knee. Two distinct, healing ulcerations within the erythema just above the ankle. No purulence, no discharge. Nothing to culture. The wound is not weeping. Lab and Diagnostics Labs Item Value Date Time Troponin T 0.221 ug/L *H 04/24/17 1200 Troponin T 0.189 ug/L *H 04/24/17 1430 Lactic Acid Level 1.7 mmol/L 04/24/17 0815 Lactic Acid Level 2.0 mmol/L 04/24/17 0705 Lactic Acid Level 3.3 mmol/L H 04/24/17 0300 D-Dimer 1.87 mg/L FEU H 04/24/17 0300 Activated Partial Thromboplast Time 24.4 sec 04/24/17 0300 Prothromb Time International Ratio 1.02 ratio 04/24/17 0300 Prothrombin Time 10.9 sec 04/24/17 0300 Red Blood Count 5.25 mil/mm3 H 04/24/17 0300 Mean Corpuscular Volume 88.4 fL 04/24/17 0300 Mean Corpuscular Hemoglobin 30.3 pg 04/24/17 0300 Mean Corpuscular Hemoglobin Concent 34.3 % 04/24/17 0300 Red Cell Distribution Width 14.0 % 04/24/17 0300 Platelet Count 134 aubrey/L L 04/24/17 0300 Neutrophils (%) (Auto) 91.0 % H 04/24/17 0300 Lymphocytes (%) (Auto) 4.2 % L 04/24/17 0300 Result Diagram: 04/24/17 0300 04/24/17 0300 Microbiology Blood cultures x2 pending X-Rays, CTs and MRIs CT ANGIO CHEST PULMONARY EMBOLISM IMPRESSION: 1. No acute pulmonary embolus. 2. 7 mm diameter right apical nodule not visualized on prior comparisons. Please see followup guidelines below. Consider followup at 3-6 months based on the risk stratification of the patient. 3. Focal nodular air space opacities in the right middle lobe. Attention should be directed to this region on future surveillance studies. Differential considerations include neoplasm and mild airspace disease. 4. Slow increase in the conspicuity of the patchy pulmonary opacities at the posterior aspect of the left upper lobe when compared with studies dating back to 2009. Although this may represent pulmonary scarring, indolent neoplasm cannot be excluded. Dictated by: Melody Maxwell M.D. on 04/24/2017 at 8:55 Approved by: Melody Maxwell M.D. on 04/24/2017 at 9:07 X-RAY CHEST ONE VIEW, PORTABLE IMPRESSION: Minimal basilar opacity likely atelectasis. Dictated by: Deny Lazaro RRA Interpreted: Melody Maxwell MD on 04/24/2017 at 8:54 Transcribed by: DELVIN on 04/24/2017 at 8:56 Approved by: Melody Maxwell M.D. on 04/24/2017 at 9:21 . Assessment & Plan 82 year old female who is infrequently active with a hx of COPD on 2L home O2, HTN, hyperlipidemia, hypothyroid, stable angina, CABG with stent placement, who presents to the hospital after being scratched by her cat, with three days of increased lower right leg redness and swelling. Cellulitis Right Lower Leg, POA, active. - Pt was started on IV meropenam and vancomycin - Sepsis Protocol initiated - D-dimer elevation, PE ruled out with CTA. Limited efficacy of US of the lower limb in the setting of cellulitis. - Lactic acid downtrending - Continue monitor Sepsis, POA, active - Pt meets criteria for sepsis with increased white count, bacteremia, lactic acid, increased respiratory rate and focus of infection. - Pt was started on IV meropenam and vancomycin for broad spectrum coverage - BP currently under control without need for pressors, no fevers - Lactic acid downtrending - Procalcitonin Elevated at .47 - Continue to monitor Bacteremia, POA, active - gram-negative bacteria in all 4 blood cultures. With gram-positive also in one of the cultures. - We will continue current antibiotic regimen until sensitivities become available. - Follow-up blood cultures in 1-2 days. Elevated troponin of unknown significance, POA, active - Troponins 0.079, 0.224, 0.198 - EKG shows sinus rhythm, prolonged PA interval, incomplete RBBB, LVH, no significant changes since previous. - Patient complains of no chest pain or discomfort at this time. - Consider Echo to evaluate for CHF. Hypophosphatemia, POA, active - Left show phosphate level of 1.4. - Continue to monitor as sepsis improves - Consider replacement phosphate Other chronic conditions include: COPD - CPAP at night for sleep - O2 as needed, 1-2L at home O2 Hypertension - Patient will receive home medications for blood pressures daily - We will continue to monitor blood pressures closely as patient currently meets criteria for sepsis Hyperlipidemia - Cholesterol panel obtained, pending - Continue home statin therapy Hypothyroidism - TSH, free T4 panel ordered, pending - Restart levothyroxine if indicated Pain Evaluation: Adequate Pain Control GI Prophylaxis: H2 yelena VTE Prophylaxis: Sub-Q Heparin (Unfractionated) Resuscitation Status: CPR: Attempt Resuscitation Attending Statement The patient was seen and examined together with Dr. Phillips on 04/24/2017 and I agree with the history, exam and plan as outlined in the note above. . Andrea Phillips DO Apr 24, 2017 15:42 Deep Gallo MD Apr 30, 2017 15:56
--- NOTE | 2017-04-24 16:54 | CONS ---
[address] [address] CONSULTATION REPORT PATIENT: Camacho KRUSE : 1935 MR#: [id number] ADMIT: 04/24/2017 JOB ID: [id number] DATE OF SERVICE: 04/24/2017 REASON FOR CONSULTATION: Severe cellulitis, right lower extremity. Possibly secondary to cat bite. INTERVAL HISTORY: The patient is an 82-year-old woman who reports that two weeks ago, or perhaps longer (the details are unclear), she was scratched by her cat. She reports that she sought evaluation and was given a prescription for Keflex and I have confirmed this using the [employer] computer system. Following the Keflex, she says that the redness, tenderness, and swelling of her right lower extremity below the knee started to improve, but she then reports she was scratched again by the cat. She adamantly denies, as does her daughter, that any of this was a cat bite, and they state it was all due to cat scratches. 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 She reports that associated symptoms, in addition to the swelling and tenderness below the right knee, included subjective fevers, shaking chills, headache, flu-like illness, myalgias, arthralgias and malaise. The right lower extremity below the knee has been very red, swollen, and tender. She reports there has been some leakage of fluid. PAST MEDICAL HISTORY: Notable for some COPD, as well as hypertension, but she is reasonably independent and doing fairly well on a day-to-day basis, aside from this acute problem. PAST MEDICAL HISTORY: 1. COPD. 2. Hypothyroidism. 3. Hyperlipidemia. 4. Hypertension. 5. Chronic lower extremity edema. 6. History of phlebitis, right lower extremity, in the distant past. 7. Status post appendectomy. 8. History of cerebrovascular disease. 9. History of DVT. 10. Coronary artery disease with history of CABG in the past. SOCIAL HISTORY: The patient currently lives with her daughter and a cat in the [place] area. She is retired. She is a former smoker, having quit 20 years ago. She does not drink any alcohol. FAMILY HISTORY: Negative for TB in first- and second-degree relatives. REVIEW OF SYSTEMS: The patient currently has a fairly significant headache and that has been going on for about three days. She also has some mild photophobia. She denies sore throat or trouble swallowing. She denies stiff neck. She is having some mild subjective shortness of breath and some mild dry cough. No chest pain per se and her repeat respiratory status is really not a lot worse than baseline. She has been having some nausea without vomiting or diarrhea. She has occasional dysuria, she states, but not frequent and no more than usual at this point. She does have a large right abdominal hernia which is no worse than baseline. Remainder of the review of systems negative. PHYSICAL EXAMINATION: Reveals an afebrile woman, temp 36.5, pulse 63, respiratory rate 18, blood pressure 115/49. She is saturating 91% on 2 L. Examination of the head: No trauma is noted. No temporal wasting. Eyes with equal pupils and no conjunctivitis or scleral icterus. Nose is normal. Oral cavity without thrush or hairy leukoplakia. Neck quite supple without adenopathy or JVD. Lungs are basically clear. Cardiac tones: Regular rate and rhythm. The abdomen is notable for a large right abdominal wall hernia, which is easily reducible. There is no abdominal pain, hepatosplenomegaly, or ascites. She does not have a Avendaño catheter. Her upper extremities are basically benign appearing. The right lower extremity below the knee has an almost confluent cellulitis. There are two small, what appear to be puncture wounds present on the right lateral mid calf, in the middle of the cellulitic area. She lacks palpable dorsal pedal or posterior tibial pulses. Slow capillary refill is noted in both feet. The right lower extremity, in general, is swollen as compared to the right. Neurologically, the patient has intact sensation of lower extremities. She has a very hypersensitive reaction to any touch in the lower extremity, as she reports she is extremely ticklish at baseline. No synovitis or active joint involvement is seen. LABS: Include white blood count 16,000, hematocrit 46, platelet count 134,000. Creatinine is 0.68. LFTs are normal. Procalcitonin 0.47. Urinalysis without white cells. Micro studies include two sets of blood cultures done in the early a.m. hours which are of course still pending. Chest CT was done because of reports of cough and shortness of breath. It shows no pulmonary embolism. A small right apical nodule is noted and followup was recommended. In addition, there is a small focal nodular airspace infiltrate in the right middle lobe and it is recommended this be followed up to exclude neoplasm. IMPRESSION: This is a slightly confusing case of a woman who reports that on two occasions during the month of March she was scratched by her cat. Both she and her daughter say this was absolutely not a cat bite. Cat scratches are associated with Bartonella infections, and this is not the appearance of this lesion, which appears more like a cellulitis and more as one would see with a cat bite rather than a cat scratch. I wonder if some portion of the history has been missed here, but the patient and her daughter deny this. It is also possible that trauma from a cat scratch, in and of itself, produce not Bartonella infection necessarily but provided a portal of entry for Staph or Strep, and I think we must consider those possibilities as well as Pasteurella in this circumstance. The patient was started in the ED on their very broad-spectrum, life-threatening soft tissue infection program, which consists of vancomycin, meropenem, and clindamycin. At this point, I think that may be somewhat overkill in that the patient has not recently been hospitalized and is not at serious risk for nosocomial-type organisms. RECOMMENDATIONS: 1. A MRSA screen of the nares will be checked. 2. We can probably reasonably stop the clindamycin, as I do not think there is much going on here in terms necrotizing soft tissue infection, but will continue with the vancomycin and meropenem, at least short term, while we wait for MRSA screen and any other cultures. 3. I would anticipate a considerable narrowing of antibiotics in the near future going forward. 4. ID will continue to closely follow this case with you.
[2017-04-24] MEDS: Vancomycin Inj 1,250 MG in 0.9% Sodium Chloride 250 ML IV SCH (20:30)
[2017-04-25] VITALS (8 sets, daily range): BP systolic 118–163; BP diastolic 54–71; PULSE 61–97; RESP 16–20; O2SAT 91–93
[2017-04-25] MEDS: Sodium Chloride LOK Flush 10 mL Syringe IVFLUSH SCH ×3 (00:30→13:41)
[2017-04-25] MEDS: Heparin 5,000 Unit/mL Inj SUBQ SCH ×3 (02:05→16:26)
[2017-04-25 03:34] LABS: BASOPHILS % (AUTO) 0.1 % (0-3); EOSINOPHILS % (AUTO) 0.3 % (0-5); MONOCYTES % (AUTO) 6.4 % (4-12); Mean Corpuscular Hemoglobin 30.2 pg (27.0-35.0); Mean Corpuscular Volume 90.7 fL (81-100); NEUTROPHILS % (AUTO) 86.3 % (40-74); Platelet Count 95 bil/L (150-400)
[2017-04-25] MEDS: Meropenem Inj 1,000 MG in 0.9% Sodium Chloride 100 ML IV SCH ×3 (05:26→20:37)
[2017-04-25 06:24] LABS: APPEARANCE,URINE HAZY (CLEAR,HAZY); COLOR,URINE DARK YELLOW (YELLOW); OCCULT BLOOD,URINE TRACE (NEGATIVE); PH,URINE 5.5 (5.0-8.0)
[2017-04-25 06:54] LABS: Magnesium 1.7 mg/dL (1.6-2.6)
[2017-04-25] MEDS: Vancomycin Inj 1,250 MG in 0.9% Sodium Chloride 250 ML IV SCH ×2 (08:14→08:18)
[2017-04-25] MEDS: Vancomycin Dose per Pharmacist XX SCH (08:14)
--- NOTE | 2017-04-25 08:46 | PROG NOTE ---
[address] [address] PROGRESS NOTE PATIENT: Camacho KRUSE : 1935 MR#: [id number] ADMIT: 04/24/2017 JOB ID: [id number] DATE: 04/25/2017 REASON FOR FOLLOW UP: Pasteurella sepsis secondary to cat bite. INTERVAL HISTORY: The patient reports overnight she has been moderately short of breath, but she has fairly severe underlying COPD and reports this is not uncommon for her. Minimal cough. No fevers, no chills. She still has considerable pain in her right leg below the knee. She continues to state that she was scratched by a cat, not bitten, but we now have positive blood cultures that suggest otherwise. PHYSICAL EXAMINATION: Reveals a reasonably comfortable elderly woman lying supine in her hospital bed. Temp 37.3, pulse 61, respiratory rate 16, blood pressure 118/56. She is saturating 91% on 1 L. Her mental status is completely clear. Oral cavity negative. Lungs relatively clear, a few crackles at the bases. Abdomen soft, nontender. Right lower extremity with almost confluent cellulitis below the right knee. This area is warm, somewhat tender and without bullae or skin breakdown. She has normal range of motion of her right lower extremity. LABORATORIES: Include white blood count 13,400, which is slightly improved over yesterday. Still 86% segs. Her creatinine 0.85. Her LFTs are normal. Procalcitonin 12.6 yesterday. Urinalysis was negative. Micro studies: We now have four of four blood cultures growing a small oxidase positive gram-negative mavis which resembles very closely pasteurella, and I have discussed this in detail with the micro people. IMPRESSION: This is an unfortunate woman who was scratched and also bitten apparently by her cat as she now has a fairly severe right lower extremity cellulitis with associated high-grade pasteurella bacteremia. Ordinarily the best drug here would be Unasyn, but the patient reports she had a severe but unknown reaction many years ago to amoxicillin. I suspect that this is not really a terribly important drug reaction but given her vague history, I am not completely sanguine about that. Quinolones are often good second choice drugs for Pasteurella, and we will go ahead and place the patient on levo today in preparation for dropping the meropenem tomorrow when we get back susceptibilities. RECOMMENDATIONS: 1. We will discontinue the vancomycin today. 2. We will continue with the meropenem for the time being until we have back full susceptibilities. 3. We will start the patient on levofloxacin 500 mg once a day today. I realize this will be redundant with the meropenem, but I am trying to make sure the patient tolerates the levofloxacin and also betting that it will be susceptible. 4. We will continue to closely follow this complex patient with you. Thank you very much.
[2017-04-25] MEDS ORDERED: Albuterol-Ipratropium 120 Spray 4 Gm Inhaler INHALATION PRN (09:15)
[2017-04-25] MEDS ORDERED: Albuterol HFA 60 Puff 8 Gm Inhaler INHALATION PRN (09:15)
[2017-04-25] MEDS: levoFLOXacin 500 mg Tablet PO SCH (09:27)
[2017-04-25] MEDS ORDERED: Albuterol 2.5 mg/3 mL Inhalation Solution NEB PRN (09:40)
[2017-04-25] MEDS: 0.9% Sodium Chloride 1,000 ML IV SCH ×3 (10:19→20:37)
--- NOTE | 2017-04-25 10:30 | PCM.PNMED ---
Subjective Date of Service Apr 25, 2017 Subjective 82 year old female who is infrequently active with a hx of COPD on 2L home O2, HTN, hyperlipidemia, hypothyroid, stable angina, CABG with stent placement, who presents to the hospital after being scratched by her cat, with three days of increased lower right leg redness and swelling. Assessment: Pt sitting up in bed this am, states that she is still having pain in the R Leg. She notes increased SOB this am which she attributes to missing her inhaler doses. doses were given at that time and pt began to feel better. Overnight: No Acute events overnight. ROS: pt complains of Right lower leg tenderness, nausea, vague chest pain and SOB. denies fever, chills, vomiting, headache, additional swelling in limbs other than the RLL Exam Vital Signs Vital Sign - Last Date Time Temp Pulse Resp B/P Pulse Ox O2 Delivery O2 Flow Rate FiO2 04/25/17 10:12 66 04/25/17 09:54 20 92 Nasal Cannula 3.00 04/25/17 03:55 37.3 118/56 Intake and Output 04/24/17 04/24/17 04/25/17 Cumulative From/Thru 15:00 23:00 07:00 04/24/17 02:49 - 04/25/17 06:48 Intake Total 1594 ml 1641 ml 4235 ml Output Total 500 ml 450 ml 950 ml Balance 1094 ml 1191 ml 3285 ml Intake Oral 400 ml 400 ml IV Total 1594 ml 1241 ml 3835 ml Output Urine Total 500 ml 450 ml 950 ml Exam Gen: Awake, very pleasant, obese, elderly woman. No distress. Resting comfortably on the gurney. HEENT: PERRL, EOMI, no scleral icterus, no conjunctival pallor, no pharyngeal erythema or exudate. Neck: supple, non tender, no thyromegaly, no JVD CV: RRR, normal S1/2. no murmurs rubs or gallops. Resp: coarse breath sounds bilaterally, mild expiratory wheeze in all lung key. Speaking in full sentences on 1-2L O2 NC. No rales, or rhonchi. Abd: Soft, non tender, no rebound or guarding, no organomegaly Extremities: Moving all extremities well. Trace edema of the Right leg. LL tender palpation bilaterally. Neuro: CN 2-12 grossly intact, no focal neurologic deficit. Psych: Pleasant and appropriate mood and affect Skin: Large tender area of diffuse petechial erythema extending from the right lateral malleolus on the anterior and lateral sides of the R lower leg up to the fibular head. No erythema on the knee. Two distinct, healing ulcerations within the erythema just above the ankle. No purulence, no discharge. Nothing to culture. The wound is not weeping. IVs and Medications IV Fluids 100 ML NS given with IV medications Medications Reviewed: Medications were reviewed in detail Lab and Diagnostics Result Diagram: 04/25/17 0310 04/25/17 0600 Microbiology Blood cultures x2 pending X-Rays, CTs and MRIs CT ANGIO CHEST PULMONARY EMBOLISM IMPRESSION: 1. No acute pulmonary embolus. 2. 7 mm diameter right apical nodule not visualized on prior comparisons. Please see followup guidelines below. Consider followup at 3-6 months based on the risk stratification of the patient. 3. Focal nodular air space opacities in the right middle lobe. Attention should be directed to this region on future surveillance studies. Differential considerations include neoplasm and mild airspace disease. 4. Slow increase in the conspicuity of the patchy pulmonary opacities at the posterior aspect of the left upper lobe when compared with studies dating back to 2009. Although this may represent pulmonary scarring, indolent neoplasm cannot be excluded. Dictated by: Melody Maxwell M.D. on 04/24/2017 at 8:55 Approved by: Melody Maxwell M.D. on 04/24/2017 at 9:07 X-RAY CHEST ONE VIEW, PORTABLE IMPRESSION: Minimal basilar opacity likely atelectasis. Dictated by: Deny Lazaro [facility] Interpreted: Melody Maxwell MD on 04/24/2017 at 8:54 Transcribed by: DELVIN on 04/24/2017 at 8:56 Approved by: Melody Maxwell M.D. on 04/24/2017 at 9:21 . Assessment & Plan 82 year old female who is infrequently active with a hx of COPD on 2L home O2, HTN, hyperlipidemia, hypothyroid, stable angina, CABG with stent placement, who presents to the hospital after being scratched by her cat, with three days of increased lower right leg redness and swelling. Cellulitis Right Lower Leg, POA, active. - Pt was started on IV meropenam and vancomycin - Per recommendations of ID, Vanco DC'd. Levofloxacin initiated - Sepsis protocol initiated - D-dimer elevation, PE ruled out with CTA. Limited efficacy of US of the lower limb in the setting of cellulitis. - Lactic acid downtrending - Continue monitor Sepsis, POA, active On admission pt met criteria for sepsis with increased white count, bacteremia, lactic acid, increased respiratory rate, and focus of infection. - Pt was started on IV meropenam and vancomycin for broad spectrum coverage - Per recommendations of Bre ROSADO DC'shannon. Levofloxacin initiated - BP currently under control without need for pressors, no fevers - Lactic acid downtrending - Procalcitonin uptrending, continue to follow - Continue to monitor Bacteremia, POA, active - gram-negative bacteria in all 4 blood cultures. With gram-positive also in one of the cultures. - We will continue current antibiotic regimen per recommendations of ID. (See above) - Consider Follow-up blood cultures Elevated troponin of unknown significance, POA, active - Undulating troponin levels, this seems to be indicative of stress placed on her body from sepsis and bacteremia, as her troponin levels continue to rise and fall daily. - Troponin levels found to be normal in December 2016 - EKG shows sinus rhythm, prolonged TN interval, incomplete RBBB, LVH, no significant changes since previous. - Repeat EKG completed this morning as patient complained of chest pain, no significant changes in EKG findings. On COPD medications were on board the patient reports that her chest pain resolved without incident. - Consider Echo to evaluate for CHF, last study completed on 04/16/2015 EF at that point 65-70% - BNP within normal limits Hypophosphatemia, POA, active - Phosphate level of 1.4 - Continue to monitor as sepsis improves - Consider replacement phosphate Other chronic conditions include: COPD - CPAP at night for sleep - O2 as needed, 1-2L at home O2 Hypertension - Patient will receive home medications for blood pressures daily - We will continue to monitor blood pressures closely as patient currently meets criteria for sepsis Hyperlipidemia - Cholesterol panel obtained, pending - Continue home statin therapy Hypothyroidism - TSH, free T4 panel within normal limits - Hold levothyroxine for now Pain Evaluation: Adequate Pain Control GI Prophylaxis: H2 yelena VTE Prophylaxis: Sub-Q Heparin (Unfractionated) Resuscitation Status: CPR: Attempt Resuscitation Attending Statement The patient was seen and examined together with Dr. Phillips on 04/25/2017 and I agree with the history, exam and plan as outlined in the note above. . Andrea Phillips DO Apr 25, 2017 10:30 Deep Gallo MD Apr 27, 2017 19:00
[2017-04-25] MEDS: Tiotropium 18mcg/Cap 5 Capsule Inhaler Kit INHALATION SCH (11:56)
[2017-04-25] MEDS ORDERED: Vancomycin Serum Trough XX ONE (20:00)
[2017-04-26] VITALS (9 sets, daily range): BP systolic 127–169; BP diastolic 66–79; PULSE 86–110; RESP 18–22; O2SAT 94–96
[2017-04-26] MEDS: Meropenem Inj 1,000 MG in 0.9% Sodium Chloride 100 ML IV SCH (04:27)
[2017-04-26] MEDS: 0.9% Sodium Chloride 1,000 ML IV SCH ×3 (04:28→20:01)
[2017-04-26 07:30] LABS: BASOPHILS % (AUTO) 0.1 % (0-3); EOSINOPHILS % (AUTO) 1.4 % (0-5); MONOCYTES % (AUTO) 8.3 % (4-12); Mean Corpuscular Volume 90.8 fL (81-100); NEUTROPHILS % (AUTO) 80.6 % (40-74); Platelet Count 106 bil/L (150-400)
[2017-04-26 08:14] LABS: TROPONIN T 0.132 ug/L (0.0-0.011)
[2017-04-26] MEDS: levoFLOXacin 500 mg Tablet PO SCH (08:19)
[2017-04-26] MEDS: Heparin 5,000 Unit/mL Inj SUBQ SCH ×4 (08:19→23:50)
[2017-04-26] MEDS: Sodium Chloride LOK Flush 10 mL Syringe IVFLUSH SCH ×4 (08:20→23:52)
[2017-04-26] MEDS: Tiotropium 18mcg/Cap 5 Capsule Inhaler Kit INHALATION SCH (08:20)
[2017-04-26] MEDS ORDERED: cefTRIAXone Inj 2,000 MG in Dextrose 5% Minibag Plus 50 ML IV SCH (08:35)
[2017-04-26 08:49] LABS: Magnesium 1.8 mg/dL (1.6-2.6)
--- NOTE | 2017-04-26 08:57 | PROG NOTE ---
[address] [address] PROGRESS NOTE PATIENT: Camacho KRUSE : 1935 MR#: [id number] ADMIT: 04/24/2017 JOB ID: [id number] DATE: 04/26/2017 INFECTIOUS DISEASE FOLLOW UP NOTE: REASON FOR FOLLOWUP: Bacteremic pasteurella cellulitis secondary to cat bite. INTERVAL HISTORY: The patient reports that her right lower extremity is very slowly improving though it is still feels warm and tender, but it is gradually less so. She has had no systemic fevers and chills overnight. She continues to use some oxygen which is not all that unusual for her as she has COPD and uses oxygen at home on a p.r.n. basis. No significant pulmonary or GI issues have been encountered overnight. PHYSICAL EXAMINATION: Reveals an afebrile woman. Temperature 36.8, pulse 107, respiratory rate 22, blood pressure 169/79. She is saturating 95% on 4 L today. Examination of the mental status reveals it to be clear. The oral cavity unremarkable. Lungs with decreased breath sounds bilaterally. Abdomen soft and nontender. The right lower extremity cellulitis below the knee is changing very slowly for the better. It remains warm, moderately tender to palpation and without bullae or obvious skin sloughing or breakdown. LABORATORIES: Include white count now down to 9200, so for the first day it is normal. Creatinine 0.75. Troponin still mildly elevated. Repeat procalcitonin is pending. Blood cultures x4 positive for pasteurella and we now have susceptibilities and know that it is exquisitely sensitive to penicillins and cephalosporins. One additional blood culture interestingly is positive for alpha strep. A nasal MRSA screen is negative. We have no new imaging. IMPRESSION: This is an elderly woman who has become quite toxic with a bacteremic pasteurella infection secondary to a cat bite on her right lower extremity. We have been using meropenem as a very broad agent until we had a final ID on this organism and also because of some concern about amoxicillin reaction. One very useful agent in this situation given her possible history of amoxicillin/Augmentin intolerance would be a quinolone, and for that reason, levofloxacin has been started. RECOMMENDATIONS: 1. Will discontinue the meropenem and replace it with ceftriaxone. Ceftriaxone will provide dual coverage for the alpha strep, as well as for the pasteurella while we sort this out. 2. Blood cultures x2 will be ordered today. If the alpha strep surfaces again on the blood cultures, then we will obviously need additional workup for possible endocarditis. 3. The blood cultures today will also serve to confirm that the pasteurella bacteremia has resolved. Pasteurella endocarditis is a very rare entity, but if her blood cultures were to stay positive we would need an echo done for that purpose. 4. Will continue with the levo 500 a day. The levo will be our eventual discharge drug of choice. 5. The patient tells me that her daughter, with whom she lives, will be headed to [place] next week to visit apparently the grandchildren who live in [facility]. The patient tells me she is not confident about her ability to make it alone at home next week, and for that reason, we should probably start thinking about retirement facility for at least a short term until the daughter returns from [place].
[2017-04-26] MEDS: Ondansetron 2 mg/mL 2 mL Inj IVPUSH PRN ×2 (11:44→19:43)
--- NOTE | 2017-04-26 22:00 | PCM.PNMED ---
Subjective Date of Service Apr 26, 2017 Subjective 82 year old female who is infrequently active with a hx of COPD on 2L home O2, HTN, hyperlipidemia, hypothyroid, stable angina, CABG with stent placement, who presents to the hospital after being scratched by her cat, with three days of increased lower right leg redness and swelling. Assessment: Patient is feeling better overall, continues to complain of some nausea and threw up this morning after eating. Leg is feeling less tender, patient still requires assistance moving about the room. Events Overnight: No acute events overnight. ROS: Patient continues to have some shortness of breath. Denies fever/chills, nausea/vomiting, headache, weakness, abdominal pain, chest pain, increased swelling in hands or feet. Exam Vital Signs Vital Sign - Last Date Time Temp Pulse Resp B/P Pulse Ox O2 Delivery O2 Flow Rate FiO2 04/26/17 19:45 Supplement Oxygen 04/26/17 19:45 36.4 86 20 153/66 95 4.00 Intake and Output 04/25/17 04/25/17 04/26/17 Cumulative From/Thru 15:00 23:00 07:00 04/24/17 02:49 - 04/26/17 06:09 Intake Total 810 ml 753 ml 5798 ml Output Total 700 ml 1650 ml Balance 110 ml 753 ml 4148 ml Intake Oral 720 ml 400 ml 1520 ml IV Total 90 ml 353 ml 4278 ml Output Urine Total 550 ml 1500 ml Stool Total 150 ml 150 ml # Voids 1 1 # Bowel Movements 1 1 Exam Gen: Awake, very pleasant, obese, elderly woman. No distress. Resting comfortably on the gurney. HEENT: PERRL, EOMI, no scleral icterus, no conjunctival pallor, no pharyngeal erythema or exudate. Neck: supple, non tender, no thyromegaly, no JVD CV: RRR, normal S1/2. no murmurs rubs or gallops. Resp: coarse breath sounds bilaterally, mild expiratory wheeze in all lung key. Speaking in full sentences on 1-2L O2 NC. No rales, or rhonchi. Abd: Soft, non tender, no rebound or guarding, no organomegaly Extremities: Moving all extremities well. Trace edema of the Right leg. LL tender palpation bilaterally. Neuro: CN 2-12 grossly intact, no focal neurologic deficit. Psych: Pleasant and appropriate mood and affect Skin: Large tender area of diffuse petechial erythema extending from the right lateral malleolus on the anterior and lateral sides of the R lower leg up to the fibular head. No erythema on the knee. Two distinct, healing ulcerations within the erythema just above the ankle. No purulence, no discharge. Nothing to culture. The wound is not weeping. IVs and Medications IV Fluids 1150 mL normal saline delivered with the medications. Medications Reviewed: Medications were reviewed in detail Lab and Diagnostics Result Diagram: 04/26/1725304/26/17253 Microbiology Blood cultures x2 pending X-Rays, CTs and MRIs CT ANGIO CHEST PULMONARY EMBOLISM IMPRESSION: 1. No acute pulmonary embolus. 2. 7 mm diameter right apical nodule not visualized on prior comparisons. Please see followup guidelines below. Consider followup at 3-6 months based on the risk stratification of the patient. 3. Focal nodular air space opacities in the right middle lobe. Attention should be directed to this region on future surveillance studies. Differential considerations include neoplasm and mild airspace disease. 4. Slow increase in the conspicuity of the patchy pulmonary opacities at the posterior aspect of the left upper lobe when compared with studies dating back to 2009. Although this may represent pulmonary scarring, indolent neoplasm cannot be excluded. Dictated by: Melody Maxwell M.D. on 04/24/2017 at 8:55 Approved by: Melody Maxwell M.D. on 04/24/2017 at 9:07 X-RAY CHEST ONE VIEW, PORTABLE IMPRESSION: Minimal basilar opacity likely atelectasis. Dictated by: Deny Lazaro [facility] Interpreted: Melody Maxwell MD on 04/24/2017 at 8:54 Transcribed by: DELVIN on 04/24/2017 at 8:56 Approved by: Melody Maxwell M.D. on 04/24/2017 at 9:21 . Assessment & Plan 82 year old female who is infrequently active with a hx of COPD on 2L home O2, HTN, hyperlipidemia, hypothyroid, stable angina, CABG with stent placement, who presents to the hospital after being scratched by her cat, with three days of increased lower right leg redness and swelling. Cellulitis Right Lower Leg, POA, active. - Pt was started on IV meropenam and vancomycin - Per recommendations of ID, Vanco and meropenem now DC'd. Continue Levofloxacin therapy - Sepsis protocol initiated - D-dimer elevation, PE ruled out with CTA. Limited efficacy of US of the lower limb in the setting of cellulitis. - Lactic acid downtrending - Continue monitor Sepsis, POA, active On admission pt met criteria for sepsis with increased white count, bacteremia, lactic acid, increased respiratory rate, and focus of infection. - Pt was started on IV meropenam and vancomycin for broad spectrum coverage - Per recommendations of ID, Vanco and meropenem now DC'd. Continue Levofloxacin therapy - BP currently under control without need for pressors, no fevers - Lactic acid downtrending - Procalcitonin uptrending, continue to follow - Continue to monitor Bacteremia, POA, active - gram-negative bacteria in all 4 blood cultures. With gram-positive also in one of the cultures. - We will continue current antibiotic regimen per recommendations of ID. (See above) - Consider Follow-up blood cultures Elevated troponin of unknown significance, POA, active - Undulating troponin levels, this seems to be indicative of stress placed on her body from sepsis and bacteremia, as her troponin levels continue to rise and fall daily. - Troponin levels found to be normal in December 2016 - EKG shows sinus rhythm, prolonged ID interval, incomplete RBBB, LVH, no significant changes since previous. - Repeat EKG completed on 04/24 as patient complained of chest pain, no significant changes in EKG findings. Once COPD medications were on board the patient reports that her chest pain resolved without incident. - Consider Echo to evaluate for CHF, last study completed on 04/16/2015 EF at that point 65-70% - BNP within normal limits Hypophosphatemia, POA, active - Phosphate level of 1.4 - Continue to monitor as sepsis improves - Consider replacement phosphate Other chronic conditions include: COPD - CPAP at night for sleep - O2 as needed, 1-2L at home O2 Hypertension - Patient will receive home medications for blood pressures daily - We will continue to monitor blood pressures closely as patient currently meets criteria for sepsis Hyperlipidemia - Cholesterol panel obtained, pending - Continue home statin therapy Hypothyroidism - TSH, free T4 panel within normal limits - Hold levothyroxine for now Disposition: As patient's family is currently out of town she will need SNF placement coordinated for discharge. Patient will likely be discharged tomorrow if SNF placement can be arranged. GI Prophylaxis: H2 yelena VTE Prophylaxis: Sub-Q Heparin (Unfractionated) Resuscitation Status: CPR: Attempt Resuscitation Attending Statement The patient was seen and examined together with Dr. Phillips 04/26/2017 and I agree with the history, exam and plan as outlined in the note above. . Andrea Phillips DO Apr 26, 2017 22:00 Deep Gallo MD Apr 27, 2017 19:00
[2017-04-27 03:51] VITALS: BP 146/80; PULSE 91; RESP 18; O2SAT 95
[2017-04-27] MEDS: 0.9% Sodium Chloride 1,000 ML IV SCH ×2 (04:29→11:03)
[2017-04-27 04:31] LABS: BASOPHILS % (AUTO) 0.1 % (0-3); EOSINOPHILS % (AUTO) 1.1 % (0-5); MONOCYTES % (AUTO) 8.3 % (4-12); Mean Corpuscular Hemoglobin 30.1 pg (27.0-35.0); Mean Corpuscular Volume 88.1 fL (81-100); NEUTROPHILS % (AUTO) 82.2 % (40-74); Platelet Count 134 bil/L (150-400)
[2017-04-27 08:00] VITALS: PULSE 81
[2017-04-27] MEDS: Sodium Chloride LOK Flush 10 mL Syringe IVFLUSH SCH ×2 (08:30→15:54)
--- NOTE | 2017-04-27 09:31 | PROG NOTE ---
[address] [address] PROGRESS NOTE PATIENT: Camacho KRUSE : 1935 MR#: [id number] ADMIT: 04/24/2017 JOB ID: [id number] DATE: 04/27/2017 REASON FOR FOLLOWUP: High-grade Pasteurella bacteremia with sepsis secondary to cat bite. INTERVAL HISTORY: The patient reports that, overnight, she has continued to gradually improve. She is still having what she calls as chills, as well as some subjective fevers. She has no shortness of breath, no chest pain, nausea, vomiting, or diarrhea. The pain in her right lower extremity is gradually improving. PHYSICAL EXAMINATION: Reveals an afebrile woman. She has been afebrile throughout her hospital stay, which is now coming into its fourth day. Temperature today 37.1, her pulse 91, respiratory rate 18, blood pressure 146/80. She is saturating well, but on 3 L oxygen. She is alert and cheerful this morning. Oral cavity negative. Lungs fairly clear. Cardiac tones without new murmur. Abdomen benign. The right lower extremity confluent cellulitis below the right knee is gradually improving. There is less warmth, less tenderness, and no bullae or skin breakdown. LABORATORIES: Labs include a white blood count normal at 8900. The diff is still 82% segs. Creatinine 0.7. LFTs normal. Procalcitonin was 12 on the 1st, and 7 yesterday. The initial blood cultures on April 24, all grew Pasteurella, which was a Pasteurella multocida, and it was sensitive to Unasyn, ceftriaxone, and tobramycin. It was more or less resistant to amikacin, with a level of 16. Follow up blood cultures done yesterday are now about 20 hours old, and those are still negative. Note that one of her admission blood cultures also culture grew viridans strep, and that was one of the reasons we repeated those blood cultures. RADIOGRAPHIC DATA: No new imaging is available. IMPRESSION: This is an elderly woman who became quite toxic with bacteremic Pasteurella infection secondary to right lower extremity cat bite with associated cellulitis. We are preparing for an eventual discharge on levofloxacin 500 mg a day, as this will be our eventual drug of choice here given her underlying history of AMOXICILLIN allergy, but in the meantime, we are treating with both ceftriaxone and levofloxacin to make sure she tolerates the levofloxacin, and to provide a couple days of "double coverage." There is no evidence that double coverage is indicated for Pasteurella, but I do think it is reasonable here, given the severity of her illness, as I make the transition from a cephalosporin intravenously to oral levofloxacin. RECOMMENDATIONS: 1. Will continue with both antibiotics for the time being. 2. The patient is probably getting close to a point where she could be discharged or transferred, but she does not yet feel well enough, as she feels too weak and is still having the subjective fevers and chills, so it is probably not quite the proper time for discharge. 3. I will ask the lab to check a quinolone susceptibility to Pasteurella, though they are almost invariably susceptible.
[2017-04-27] MEDS: Ondansetron 2 mg/mL 2 mL Inj IVPUSH SCH ×3 (09:32→16:10)
[2017-04-27] MEDS ORDERED: cefTRIAXone Inj 2,000 MG in Dextrose 5% Minibag Plus 50 ML IV SCH (10:30)
[2017-04-27 10:40] VITALS: BP 160/74; PULSE 76; RESP 16; O2SAT 93; O2SAT 95
[2017-04-27] MEDS: Tiotropium 18mcg/Cap 5 Capsule Inhaler Kit INHALATION SCH (10:43)
[2017-04-27] MEDS: Heparin 5,000 Unit/mL Inj SUBQ SCH (10:44)
[2017-04-27] MEDS ORDERED: Sodium Chloride LOK Flush 10 mL Syringe IVFLUSH PRN ×2 (11:50)
[2017-04-27 12:10] VITALS: PULSE 77; RESP 20; O2SAT 94
--- NOTE | 2017-04-27 12:15 | PCM.DIMED ---
Andrea Phillips DO 04/27/17 1202: Discharge Instructions Date of Service Apr 27, 2017 Dates of Hospitalization Apr 24, 2017 at 04:47 Discharge Diagnosis Discharge Diagnosis Cellulitis Right Lower Leg, POA, active. Sepsis, POA, active Bacteremia, POA, active Elevated troponin of unknown significance, POA, active Hypophosphatemia, POA, active Other chronic conditions include: COPD Hypertension Hyperlipidemia Hypothyroidism Medication Instructions Additional med instructions Continue ceftriaxone infusions 2,000 mg/dextrose/water every 24 hours IV Test Results Test Results A chest x-ray was obtained here in the hospital which showed minimal atelectasis which is a mild collapsing of lung tissue. This could be due to many things including sedentary lifestyle. On CT scan of your chest the radiologist noted a 7 mm nodule on the right upper portion of your lung which had not previously been seen on other studies. It is not known at this time what this new nodule represents and we would like you to follow-up with your primary care for additional scanning in 3-6 months. Back in 2009 you had a scan which showed some "pulmonary opacities" in the back part of your left upper lung, in this study the radiologist states that these opacities are increasingly conspicuous, meaning that we cannot tell at this time if they are cancerous or not and for these reasons we would like you to continue to follow-up. There is nothing that needs to be done about these lesions in the hospital at this point. Diet Discharge Diet: No restrictions Activity Discharge Activity: No restrictions Call your provider Call your provider for: Fever or Chills, Shortness of breath, Bleeding, Chest pain, Vomitting, Excessive diarrhea, Weakness (unilateral) Patient Instructions Patient Instructions You came in to the hospital for a cat scratch on your lower leg. It was found that the redness and swelling is likely due to the bacteria that your cat is carrying. We found no evidence of pulmonary embolism, however, there are some findings on these scans which will be important for you to follow-up on as an outpatient. Additionally, your started on antibiotics for your condition. Due to the fact that there is no one at home currently that can help you with activities of daily living is reasonable to discharge her at this point to a intermediate facility which is able to provide this service. He will continue to receive antibiotic therapy IV per the intermediate facility. This he will continue to receive for another 8 days post discharge. Once you are discharged from the intermediate facility we would like you to follow-up with your primary care doctor especially concerning the findings noted on your CT scan. Follow-up plan Follow-up with primary care after discharge from intermediate facility. Follow-up Provider: Kadie Angel MD Follow-up with PCP in: 2 weeks Deep Gallo MD 04/27/17 1901: Discharge Instructions Attending's Statement The patient was seen and examined together with Dr. Phillips on 04/27/2017 and I agree with the history, exam and plan as outlined in the note above. . Andrea Phillips DO Apr 27, 2017 12:02 Deep Gallo MD Apr 27, 2017 19:01
--- NOTE | 2017-04-27 12:39 | PCM.DC.MED ---
Discharge Summary Date of Service Apr 27, 2017 Dates of Hospitalization Date of Hospital Admission Apr 24, 2017 at 04:47 Date of Discharge: Apr 27, 2017 Providers: Admitting Physician: Addison Feldman MD Primary Care Physician: Kadie Angel MD Attending Physician: Deep Gallo MD Diagnosis at Time of Discharge Diagnosis at Time of Discharge Cellulitis Right Lower Leg, POA, active. Sepsis, POA, active Bacteremia, POA, active Elevated troponin of unknown significance, POA, active Hypophosphatemia, POA, active Other chronic conditions include: COPD Hypertension Hyperlipidemia Hypothyroidism Consultations Infectious disease: Dr. Haywood Procedures XRay, CTs & MRIs CT ANGIO CHEST PULMONARY EMBOLISM IMPRESSION: 1. No acute pulmonary embolus. 2. 7 mm diameter right apical nodule not visualized on prior comparisons. Please see followup guidelines below. Consider followup at 3-6 months based on the risk stratification of the patient. 3. Focal nodular air space opacities in the right middle lobe. Attention should be directed to this region on future surveillance studies. Differential considerations include neoplasm and mild airspace disease. 4. Slow increase in the conspicuity of the patchy pulmonary opacities at the posterior aspect of the left upper lobe when compared with studies dating back to 2009. Although this may represent pulmonary scarring, indolent neoplasm cannot be excluded. Dictated by: Melody Maxwell M.D. on 04/24/2017 at 8:55 Approved by: Melody Maxwell M.D. on 04/24/2017 at 9:07 X-RAY CHEST ONE VIEW, PORTABLE IMPRESSION: Minimal basilar opacity likely atelectasis. Dictated by: Deny Lazaro MERGED WITH [facility] Interpreted: Melody Maxwell MD on 04/24/2017 at 8:54 Transcribed by: DELVIN on 04/24/2017 at 8:56 Approved by: Melody Maxwell M.D. on 04/24/2017 at 9:21 . Brief History Taken from original H&P transcribed by Dr. Phillips 82 year old female who is infrequently active with a hx of COPD on 2L home O2, HTN, hyperlipidemia, hypothyroid, stable angina, CABG with stent placement, who presents to the hospital after being scratched by her cat, with three days of increased lower right leg redness and swelling, with associated weakness, chills , nausea, and vomiting. 03/29, her cat scratched her right leg. Subsequently, she began to have redness and oozing from her leg. She saw her PCP on 04/05, was diagnosed with cellulitis , and given a prescription of Keflex. She took several days of the antibiotic and the cellulitis began to improve. She stopped the Keflex early as she noted improvement in symptoms. on 04/21, her cat scratched her right leg. The leg then began to have increased redness and swelling on the anterior and lateral calf. She reports that the leg feels tender and rates her pain as mild, constant /10. She denies any oozing or bleeding from the rash. On 04/22 she developed increased generalized weakness , nausea, and vomiting. She describes rigorous chills at home. She was unable to take her home medications due to her nausea. She has had no falls or other trauma to her leg. Denies any worsening shortness of breath, abdominal pain, constipation, diarrhea, new chest pain or tightness, recent travel or sick contacts. In the ED, she was afebrile, but having rigors. Leukocytosis 16.1, lactate 3.3. CXR negative. Positive ddimer, CTA PE negative. UA negative. She was started on normal saline, Vancomycin and meropenem to treat for presumed cellulitis and dehydration. Hospital Course 82 year old female who is infrequently active with a hx of COPD on 2L home O2, HTN, hyperlipidemia, hypothyroid, stable angina, CABG with stent placement, who presents to the hospital after being scratched by her cat, with three days of increased lower right leg redness and swelling. Cellulitis Right Lower Leg, POA, active. - Pt was started on IV meropenam and vancomycin - Per recommendations of ID, Vanco and meropenem now DC'd. levofloxacin therapy initiated however, patient continues to have nausea and vomiting since initiation the levofloxacin therapy was discontinued in favor of ceftriaxone IV. - D-dimer elevation, PE ruled out with CTA. Limited efficacy of US of the lower limb in the setting of cellulitis. - Lactic acid now within normal limits - Clinically the leg is improving rapidly. Sepsis, POA, active On admission pt met criteria for sepsis with increased white count, bacteremia, lactic acid, increased respiratory rate, and focus of infection. - Pt was started on IV meropenam and vancomycin for broad spectrum coverage - Per recommendations of ID, Vanco and meropenem now DC'd. levofloxacin therapy initiated however, patient continues to have nausea and vomiting since initiation the levofloxacin therapy was discontinued in favor of ceftriaxone IV. - BP currently under control without need for pressors, no fevers - Lactic acid now within normal limits - Procalcitonin downtrending I expect it will take some weeks for this to return to normal. Bacteremia, POA, active - gram-negative bacteria in all 4 blood cultures. With gram-positive also in one of the cultures. - We will continue current antibiotic regimen per recommendations of ALONZO. (See above) - Consider Follow-up blood cultures Elevated troponin of unknown significance, POA, active - Undulating troponin levels, this seems to be indicative of stress placed on her body from sepsis and bacteremia, as her troponin levels continue to rise and fall daily. - Troponin levels found to be normal in December 2016 - EKG shows sinus rhythm, prolonged IN interval, incomplete RBBB, LVH, no significant changes since previous. - Repeat EKG completed on 04/24 as patient complained of chest pain, no significant changes in EKG findings. Once COPD medications were on board the patient reports that her chest pain resolved without incident. - Consider Echo to evaluate for CHF, last study completed on 04/16/2015 EF at that point 65-70% - BNP within normal limits Hypophosphatemia, POA, active - Phosphate level up trending - No need for replacement Other chronic conditions include: COPD - CPAP at night for sleep - O2 as needed, 1-2L at home O2 Hypertension - Patient will receive home medications for blood pressures daily - We will continue to monitor blood pressures closely Hyperlipidemia - Cholesterol panel obtained, pending - Continue home statin therapy Hypothyroidism - TSH, free T4 panel within normal limits - Hold levothyroxine for now Disposition: As patient's family is currently out of town she will need SNF placement coordinated for discharge. SNF placement arranged for today pending PICC placement. Exam Vital Signs (Last) Date Time Temp Pulse Resp B/P Pulse Ox O2 Delivery O2 Flow Rate FiO2 04/27/17 10:40 36.7 76 16 160/74 95 Nasal Cannula 2.50 Exam Gen: Awake, very pleasant, obese, elderly woman. No distress. Resting comfortably on the gurney. HEENT: PERRL, EOMI, no scleral icterus, no conjunctival pallor, no pharyngeal erythema or exudate. Neck: supple, non tender, no thyromegaly, no JVD CV: RRR, normal S1/2. no murmurs rubs or gallops. Resp: coarse breath sounds bilaterally, mild expiratory wheeze in all lung key. Speaking in full sentences on 1-2L O2 NC. No rales, or rhonchi. Abd: Soft, non tender, no rebound or guarding, no organomegaly Extremities: Moving all extremities well. Trace edema of the Right leg. LL tender palpation bilaterally. Neuro: CN 2-12 grossly intact, no focal neurologic deficit. Psych: Pleasant and appropriate mood and affect Skin: Large tender area of diffuse petechial erythema extending from the right lateral malleolus on the anterior and lateral sides of the R lower leg up to the fibular head. No erythema on the knee. Two distinct, healing ulcerations within the erythema just above the ankle. No purulence, no discharge. Nothing to culture. The wound is not weep Test 04/24/17 03:00 04/24/17 14:30 04/25/17 05:40 04/25/17 06:00 Erythrocyte Sedimentation Rate 2mm/hr (0-40) Prothrombin Time 10.9sec (8.1-12.5) Prothromb Time International Ratio 1.02ratio Activated Partial Thromboplast Time 24.4sec (22.8-33.0) D-Dimer 1.87mg/L FEU (<0.50) Pro-B-Type Natriuretic Peptide 730pg/mL (0-738) Lipase 10U/L (13-60) Thyroid Stimulating Hormone (TSH) 1.040uIU/mL (0.450-4.500) Free Thyroxine 1.34ng/dL (0.82-1.77) Urine Color Dark yellow (YELLOW) Urine Appearance Hazy (CLEAR,HAZY) Urine pH 5.5 (5.0-8.0) Urine Specific [place] 1.025 (1.003-1.035) Urine Protein 30mg/dL (NEG,TRACE) Urine Glucose (UA) Negativemg/dL (NEGATIVE) Urine Ketones Tracemg/dL (NEGATIVE) Urine Occult Blood Trace (NEGATIVE) Urine Nitrite Negative (NEGATIVE) Urine Bilirubin Negative (NEGATIVE) Urine Urobilinogen 2.0mg/dL (NORMAL) Urine Leukocyte Esterase Negative (NEGATIVE) Urine RBC 0-2/hpf (0-2) Urine WBC 0-5/hpf (0-5) Urine Epithelial Cells Occasional/hpf (NONE-MOD) Urine Crystals Amorphous urates (NONE Urine Bacteria Few/hpf (NONE-FEW) Urine Hyaline Casts Occasional/lpf (NONE) Urine Granular Casts None seen (NONE SEEN) Urine Waxy Casts None seen (NONE SEEN) Urine Red Blood Cell Casts None seen (NONE SEEN) Urine White Blood Cell Casts None seen (NONE SEEN) Urine Mucus Present (None Seen) Urine Trichomonas None seen (NONE SEEN) Urine Yeast None (NONE SEEN) Urinalysis Comment None Urine Culture Reflexed Not indicated Hold Urine Received (Received) Lactic Acid Level 1.6mmol/L (0.4-2.0) Test 04/25/17 20:07 04/26/17 02:54 04/26/17 08:09 04/27/17 03:55 Vancomycin Level Trough 9.3mcg/mL Magnesium Level 1.8mg/dL (1.6-2.6) Troponin T 0.132ug/L (0.0-0.011) Procalcitonin 7.14ng/mL (0.00-0.08) Hold Stubbs Top Tube Received (Received) White Blood Count 8.9th/mm3 (3.8-10.1) Red Blood Count 4.72mil/mm3 (3.90-5.20) Hemoglobin 14.2g/dL (12.0-15.6) Hematocrit 41.6% (35.0-46.0) Mean Corpuscular Volume 88.1fL (81-100) Mean Corpuscular Hemoglobin 30.1pg (27.0-35.0) Mean Corpuscular Hemoglobin Concent 34.1% (32.0-37.0) Red Cell Distribution Width 14.1% (12.3-15.4) Platelet Count 134bil/L (150-400) Neutrophils (%) (Auto) 82.2% (40-74) Lymphocytes (%) (Auto) 8.2% (14-46) Monocytes (%) (Auto) 8.3% (4-12) Eosinophils (%) (Auto) 1.1% (0-5) Basophils (%) (Auto) 0.1% (0-3) Sodium Level 141mEq/L (134-144) Potassium Level 3.5mEq/L (3.5-5.2) Chloride Level 104mEq/L (97-108) Carbon Dioxide Level 22mmol/L (18-29) Blood Urea Nitrogen 13mg/dL (8-27) Creatinine 0.70mg/dL (0.57-1.00) Estimat Glomerular Filtration Rate 114mL/min (>59) Glucose Level 97mg/dL (60-99) Calcium Level 8.7mg/dL (8.5-10.1) Phosphorus Level 2.0mg/dL (2.5-4.9) Total Bilirubin 0.6mg/dL (0.0-1.2) Aspartate Amino Transf (AST/SGOT) 20U/L (0-50) Alanine Aminotransferase (ALT/SGPT) 16U/L (0-32) Alkaline Phosphatase 70U/L (25-165) Total Protein 5.3g/dL (6.4-8.4) Albumin 2.8g/dL (3.4-5.0) Microbiology Results Blood cultures x4 gram-negative bacteria, Pasteurella Discharge Medications Discharge Medications Albuterol-Expunged Drug, Do Not Renew! (Albuterol-Expunged Drug, Do Not Renew!) 2.5 Mg/3 Ml Nebu 1 INH NEB Q4HP (Reported) AmLODIPine-Expunged Drug, Do Not Renew! (AmLODIPine-Expunged Drug, Do Not Renew! ) 10 Mg Tablet 10 MG PO DAILY (Reported) Aspirin-Expunged Drug, Do Not Renew! (Aspirin-Expunged Drug, Do Not Renew!) 81 Mg Tab.chew 81 MG PO DAILY (Reported) Beclomethasone Dipropionate (Qvar) 8.7 Gm Aer.w.adap 1 PUFF INHALATION BID ( Reported) Ceftriaxone Na/Dextrose,Iso (Ceftriaxone 2 gm-D5w Bag) 2 Gm/50 Ml Piggyback 2 GM IV DAILY Prescribed by: KALYANI ORDAZ, DO Cetirizine HCl (Cetirizine HCl) 10 Mg Tablet 10 MG PO HS (Reported) Clopidogrel-Expunged Drug, Do Not Renew! (Plavix-Expunged Drug, Do Not Renew!) 75 Mg Tablet 75 MG PO DAILY (Reported) Furosemide-Expunged Drug, Do Not Renew! (Furosemide-Expunged Drug, Do Not Renew! ) 20 Mg Tablet 20 MG PO DAILY (Reported) Levothyroxine-Expunged Drug, Do Not Renew! (Synthroid-Expunged Drug, Do Not Renew!) 50 Mcg Tablet 50 MCG PO DAILY (Reported) Losartan-Expunged Drug, Do Not Renew! (Losartan-Expunged Drug, Do Not Renew!) 25 Mg Tablet 25 MG PO DAILY (Reported) Metoprolol Succinate ER (Metoprolol Succinate ER) 100 Mg Tab.er.24h 100 MG PO DAILY (Reported) Potassium Chloride (Potassium Chloride) 10 Meq Capsule.er 10 MEQ PO DAILY ( Reported) TAKE WITH FOOD Ranitidine Hcl (Zantac 75) 75 Mg Tablet 75 MG PO DAILY (Reported) Rosuvastatin-Expunged Drug, Do Not Renew! (Crestor-Expunged Drug, Do Not Renew! ) 40 Mg Tablet 40 MG PO DAILY (Reported) Sertraline-Expunged Drug, Choose New Med! (Sertraline-Expunged Drug, Choose New Med!) 100 Mg Tablet 100 MG PO DAILY (Reported) Tiotropium Br-Expunged Drug, Do Not Renew! (Spiriva-Expunged Drug, Do Not Renew! ) 18 Mcg/Puff Pack 2 PUFFS INH DAILY (Reported) Place capsule into center of chamber; close mouthpiece; press and release the piercing button only once. Exhale completely then Inhale and holdbreath aslong as is comfortable; repeat once more before discarding thecapsule. As needed Acetaminophen (Acetaminophen) 325 Mg Tablet 325 MG PO Q4H PRN PRN For Fever ( Reported) Acetaminophen (Acetaminophen) 325 Mg Tablet 650 MG PO Q4H PRN PRN For Fever ( Reported) Miscellaneous Medications Biotin (Biotin) 1,000 Mcg Tab.chew 1,000 MCG PO (Reported) Cholecalciferol (Vitamin D3) (Vitamin D3) 2,000 Unit Capsule 2,000 UNIT PO ( Reported) Nitroglycerin SL (Nitroglycerin SL) 0.4 Mg Tab.subl 0.4 MG SL (Reported) Polyethylene Glycol 3350 (Polyethylene Glycol 3350) 17 Gm Powd.pack 17 GM PO ( Reported) Additional med instructions Continue ceftriaxone infusions 2,000 mg/dextrose/water every 24 hours IV Followup Plan Follow-up plan Follow-up with primary care after discharge from senior living facility. Discharge Diet: No restrictions Discharge Activity: No restrictions Patient Instructions You came in to the hospital for a cat scratch on your lower leg. It was found that the redness and swelling is likely due to the bacteria that your cat is carrying. We found no evidence of pulmonary embolism, however, there are some findings on these scans which will be important for you to follow-up on as an outpatient. Additionally, your started on antibiotics for your condition. Due to the fact that there is no one at home currently that can help you with activities of daily living is reasonable to discharge her at this point to a senior living facility which is able to provide this service. He will continue to receive antibiotic therapy IV per the senior living facility. This he will continue to receive for another 8 days post discharge. Once you are discharged from the senior living facility we would like you to follow-up with your primary care doctor especially concerning the findings noted on your CT scan. Follow-up Provider: Kadie Angel MD Follow-up with PCP in: 2 weeks Time spent Greater than 35 minutes spent on documentation and coordination of discharge. Attending Statement The patient was seen and examined together with Dr. Phillips on 04/27/2017 and I agree with the history, exam and plan as outlined in the note above. . Andrea Phillips DO Apr 27, 2017 12:39 Deep Gallo MD Apr 27, 2017 19:02
[2017-04-27] MEDS ORDERED: CEFT2PIG IV (13:52)
[2017-04-27 16:14] VITALS: BP 189/73; PULSE 86; RESP 20; O2SAT 94
[2017-04-27 16:50] VITALS: BP 185/76
--- NOTE | 2017-04-27 16:58 | DRSVH ---
PROCEDURE: X-RAY PICC LINE PLACEMENT BY NURSE ([id number]) INDICATIONS: required for SNF placement COMPARISON: None. FINDINGS: PICC was placed by the intravenous therapy team from the right side. Fluoroscopic spot fi lm demonstrates tip projected over the mid superior vena cava. IMPRESSION: Tip of PICC projected over the mid SVC . Dictated by: Deny CURTIS Interpreted: Jagdish Maher MD on 04/27/2017 at 15:56 Approved by: Jagdish Maher M.D. on 04/27/2017 at 16:56
[2017-04-27] MEDS ORDERED: MetoCLOpramide 5 mg/mL 2 mL Inj IVPUSH PRN (17:10)
== END 2017-04-27 17:20 | DRG 872 ==
LOC: SED 02:46 → PCC 04:47
PROVIDERS: ADMIT Hospitalist; ATTEND Internal Medicine
DX: A40.8 Other streptococcal sepsis (principal); L03.115 Cellulitis of right lower limb; A28.0 Pasteurellosis; R65.20 Severe sepsis without septic shock; J44.9 Chronic obstructive pulmonary disease, unspecified; M19.90 Unspecified osteoarthritis, unspecified site; I10 Essential (primary) hypertension; E78.5 Hyperlipidemia, unspecified; E03.9 Hypothyroidism, unspecified; Z86.73 Personal history of transient ischemic attack (TIA), and cerebral infarction without residual deficits; Z86.718 Personal history of other venous thrombosis and embolism; Z95.1 Presence of aortocoronary bypass graft; I25.10 Atherosclerotic heart disease of native coronary artery without angina pectoris; Z87.891 Personal history of nicotine dependence; B95.4 Other streptococcus as the cause of diseases classified elsewhere

== ENCOUNTER 2017-06-12 11:50 | Emergency (ER) | payer MEDICARE ==
[~2017-06-12] VITALS: Ht 170.2 cm; Wt 106.8 kg
[~2017-06-12 11:50] MED LIST changes: +ACET325T51 PO; +BECL8.7A5 INHALATION; +BIOT10004 PO; +CEFT2PIG IV; +CHOL200047 PO; -CHOL400T41 PO; -HYDR-3479 PO; -HYDR25TA4 PO; +METO-394 PO; -METO100T PO; +NITR0.4T38 SL; -NITR0.4T6 SL; -NYST1POW8 MC; +POLY17PO2 PO; -SYMINH IH
[2017-06-12 12:13] VITALS: BP 152/61; PULSE 52; RESP 18; O2SAT 93
[2017-06-12 13:09] LABS: BASOPHILS % (AUTO) 0.4 % (0-3); EOSINOPHILS % (AUTO) 2.7 % (0-5); MONOCYTES % (AUTO) 8.8 % (4-12); Mean Corpuscular Hemoglobin 29.3 pg (27.0-35.0); NEUTROPHILS % (AUTO) 73.6 % (40-74); Platelet Count 140 bil/L (150-400)
[2017-06-12 13:34] LABS: TROPONIN T < 0.010 ug/L (0.0-0.011)
--- NOTE | 2017-06-12 14:07 | DRSVH ---
PROCEDURE: X-RAY CHEST ONE VIEW, PORTABLE ([id number]) INDICATIONS: Low heart rate. TECHNIQUE: One view of the chest was acquired. COMPARISON: [facility], CT, CT ANGIO CHEST PE, 04/24/2017, 5:03. [facility], CR, XR CHEST 1VW (PORTABLE), 04/24/2017, 3:03. FINDINGS: Surgical changes and devices: Postsurgical changes compatible prior CABG procedure noted. Lungs and pleura: No pleural effusions or pneumothorax. Streaky opacities in the lung bases stable c ompared to prior examination. No pulmonary edema identified. Mediastinum: Mediastinal contours appear normal. Heart size is normal. Bones and chest wall: No suspicious bony lesions. Overlying soft tissues appear unremarkable. IMPRESSION: No acute cardiopulmonary disease process. Dictated by: Kim Gonzalez MD, PhD on 06/12/2017 at 13:03 Approved by: Kim Gonzalez MD, PhD on 06/12/2017 at 13:05
--- NOTE | 2017-06-12 14:30 | ED.REPORT ---
HPI-Chest Pain 40 and Over Date of Service Jun 12, 2017 ED Provider: Willie Gilbert MD An 82 year old female with a history of hypertension, hyperlipidemia, COPD, DVT , VA, CABG and CVA presents to the ED due to bradycardia. The pt was recently in [facility] for rehabilitation, and it was noted at that time that her heart rate was occasionally low. She was instructed upon discharge to come to the ED if her heart rate was below 50. The pt was discharged from [facility] five weeks ago and has been stable since with a normal heart rate. However when her heart rate was measured by her daughter this morning, it was found to be 44. Several hours later, her heart rate was 48. She admits to fatigue but denies chest pain, shortness of breath, lightheadedness or dizziness. The pt's dose of Metoprolol has been changed recently from 100 mg to 75 mg. She forgot to take her dose last night and her dose today was held. 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 Nursing Notes Stated Complaint: LOW HEART RATE 44 AND 48 Chief Complaint: General Complaint Nursing Notes Reviewed: Yes Allergies: Coded Allergies: amoxicillin (Verified Allergy, Intermediate, rash, 12/30/16) doxycycline (Verified Allergy, Intermediate, itching rash, 12/30/16) Sulfa (Sulfonamide Antibiotics) (Verified Allergy, Unknown, 04/24/17) Scheduled Albuterol-Expunged Drug, Do Not Renew! (Albuterol-Expunged Drug, Do Not Renew!) 2.5 Mg/3 Ml Nebu 1 INH NEB Q4HP AmLODIPine-Expunged Drug, Do Not Renew! (AmLODIPine-Expunged Drug, Do Not Renew! ) 10 Mg Tablet 10 MG PO DAILY Aspirin-Expunged Drug, Do Not Renew! (Aspirin-Expunged Drug, Do Not Renew!) 81 Mg Tab.chew 81 MG PO DAILY Beclomethasone Dipropionate (Qvar) 8.7 Gm Aer.w.adap 1 PUFF INHALATION BID Ceftriaxone Na/Dextrose,Iso (Ceftriaxone 2 gm-D5w Bag) 2 Gm/50 Ml Piggyback 2 GM IV DAILY Cetirizine HCl (Cetirizine HCl) 10 Mg Tablet 10 MG PO HS Clopidogrel-Expunged Drug, Do Not Renew! (Plavix-Expunged Drug, Do Not Renew!) 75 Mg Tablet 75 MG PO DAILY Furosemide-Expunged Drug, Do Not Renew! (Furosemide-Expunged Drug, Do Not Renew! ) 20 Mg Tablet 20 MG PO DAILY Levothyroxine-Expunged Drug, Do Not Renew! (Synthroid-Expunged Drug, Do Not Renew!) 50 Mcg Tablet 50 MCG PO DAILY Losartan-Expunged Drug, Do Not Renew! (Losartan-Expunged Drug, Do Not Renew!) 25 Mg Tablet 25 MG PO DAILY Metoprolol Succinate ER (Metoprolol Succinate ER) 100 Mg Tab.er.24h 100 MG PO DAILY Potassium Chloride (Potassium Chloride) 10 Meq Capsule.er 10 MEQ PO DAILY TAKE WITH FOOD Ranitidine Hcl (Zantac 75) 75 Mg Tablet 75 MG PO DAILY Rosuvastatin-Expunged Drug, Do Not Renew! (Crestor-Expunged Drug, Do Not Renew! ) 40 Mg Tablet 40 MG PO DAILY Sertraline-Expunged Drug, Choose New Med! (Sertraline-Expunged Drug, Choose New Med!) 100 Mg Tablet 100 MG PO DAILY Tiotropium Br-Expunged Drug, Do Not Renew! (Spiriva-Expunged Drug, Do Not Renew! ) 18 Mcg/Puff Pack [address] capsule into center of chamber; close mouthpiece; press and release the piercing button only once. Exhale completely then Inhale and holdbreath aslong as is comfortable; repeat once more before discarding thecapsule. Scheduled PRN Acetaminophen (Acetaminophen) 325 Mg Tablet 325 MG PO Q4H PRN PRN For Fever Acetaminophen (Acetaminophen) 325 Mg Tablet 650 MG PO Q4H PRN PRN For Fever Miscellaneous Medications Biotin (Biotin) 1,000 Mcg Tab.chew 1,000 MCG PO Cholecalciferol (Vitamin D3) (Vitamin D3) 2,000 Unit Capsule 2,000 UNIT PO Nitroglycerin SL (Nitroglycerin SL) 0.4 Mg Tab.subl 0.4 MG SL Polyethylene Glycol 3350 (Polyethylene Glycol 3350) 17 Gm Powd.pack 17 GM PO General Time Seen by MD: 14:28 Chief Complaint Other (Bradycardia) Hx Obtained From: Patient, Daughter Arrived By: Walk-in Sudden in Onset?: Yes Recent Healthcare: Recent doctor visit, Recent hospitalization Similar Sx Previous: No Past Medical History Past Medical History Notes: 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 Hobbs Past Medical History 1. Hypertension. 2. Hyperlipidemia. 3. Hypothyroidism. 4. COPD on steroid inhaler. 5. Osteoarthritis. 6. Varicose vein stripping. 7. Lower-extremity edema. 8. Appendectomy. 9. Previous CVAs. 10. B12 deficiency. 11. History of DVT. 12. CAD 13. VA 14. CABG 15. 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 Physical Exam Initial Vital Signs Vital Signs (First) Date Time Temp Pulse Resp B/P Pulse Ox O2 Delivery O2 Flow Rate FiO2 06/12/17 12:13 52 18 152/61 93 Nasal Cannula 2 06/12/17 15:25 36.4 Initial VS: Reviewed General/Constitutional: Awake, Alert Respiratory / Chest: Atraumatic, Breath sounds NL, Breath sounds = bilat, No respiratory distress Cardiovascular: Regular rhythm, Heart sounds NL, No murmurs Heart Rate / Rhythm: Positive: Bradycardia Abdomen: Atraumatic, Soft, Non-tender Neck: Atraumatic, Supple, Full range of motion Back: Atraumatic, Full range of motion Lower Extremity / Pelvis / MS: Atraumatic, Full range of motion 1+ edema bilaterally Skin: Atraumatic, Color NL, No rash, Warm, Dry Neurologic: Oriented X3, Speech NL, No motor deficits, No sensory deficits Psychiatric: Affect NL, Mood NL Head / Eyes: Atraumatic, Normocephalic, PERRL, EOMI ENT: Atraumatic, Airway patent, Mucous membranes moist Upper Extremity / MS: Atraumatic, Full range of motion Interpretation & Diagnostics Lab Results Interpretation Result Diagram: 06/12/17 1300 06/12/17 1300 Test 06/12/17 13:00 06/12/17 15:19 White Blood Count 7.7th/mm3 (3.8-10.1) Red Blood Count 4.68mil/mm3 (3.90-5.20) Hemoglobin 13.7g/dL (12.0-15.6) Hematocrit 42.1% (35.0-46.0) Mean Corpuscular Volume 90.0fL (81-100) Mean Corpuscular Hemoglobin 29.3pg (27.0-35.0) Mean Corpuscular Hemoglobin Concent 32.5% (32.0-37.0) Red Cell Distribution Width 15.2% (12.3-15.4) Platelet Count 140bil/L (150-400) Neutrophils (%) (Auto) 73.6% (40-74) Lymphocytes (%) (Auto) 14.2% (14-46) Monocytes (%) (Auto) 8.8% (4-12) Eosinophils (%) (Auto) 2.7% (0-5) Basophils (%) (Auto) 0.4% (0-3) Sodium Level 141mEq/L (134-144) Potassium Level 4.2mEq/L (3.5-5.2) Chloride Level 103mEq/L (97-108) Carbon Dioxide Level 24mmol/L (18-29) Blood Urea Nitrogen 15mg/dL (8-27) Creatinine 0.70mg/dL (0.57-1.00) Estimat Glomerular Filtration Rate 114mL/min (>59) Glucose Level 94mg/dL (60-99) Calcium Level 9.5mg/dL (8.5-10.1) Magnesium Level 2.0mg/dL (1.6-2.6) Total Bilirubin 0.7mg/dL (0.0-1.2) Aspartate Amino Transf (AST/SGOT) 18U/L (0-50) Alanine Aminotransferase (ALT/SGPT) 14U/L (0-32) Alkaline Phosphatase 90U/L (25-165) Troponin T < 0.010ug/L (0.0-0.011) Total Protein 6.8g/dL (6.4-8.4) Albumin 4.2g/dL (3.4-5.0) Hold Stubbs Top Tube Received (Received) Hold Urine Received (Received) ECG Interpretation ECG Interpretation: bradycardia with a rate of 51 QTc 458 T wave inversions in III no change from previous Time: 13:05 Interpreted by: ED physician X-Ray Chest Interpretation Chest Xray Interpretation: IMPRESSION: No acute cardiopulmonary disease process. Dictated by: Kim Gonzalez MD, PhD on 06/12/2017 at 13:03 Approved by: Kim Gonzalez MD, PhD on 06/12/2017 at 13:05 Interpretation / Wet Read by: Interpret - Radiologist Re-Eval/Medical Decision Med Decision/Clinical Course 82-year-old female history of CABG presenting with asymptomatic bradycardia. Brought in by her daughter who is a nurse and noted her heart rate in the high 40s and low 50s. Patient denies any symptoms. EKG shows sinus bradycardia. She is on metoprolol though daughter assures me she has not taken this in 2 days. I discussed with the patient's brim welt sewing machine operator to recommend she decrease her metoprolol dose in half and will go over to cardiology department today for a Holter monitor. Return precautions given. Source of Hx: Old records Time of Eval: 14:57 Patient Status: Condition improved Re-Evaluation/Progress Note: Pt rechecked, who is comfortable. The diagnosis and plan for discharge are discussed. The pt and her daughter understand and agree with the plan. All questions are addressed at this time. Consultation #1: Referral / Consult Name: Hilda Hobbs MD Consulted With: Cardiology Call Returned at: 14:46 Industrial Electrical Engineer: Agrees with eval Note: Consulted with Dr. Hobbs, pt's brim welt sewing machine operator, who will review the pt's case and call back. Consultation #2: Referral / Consult Name: Hilda Hobbs MD Consulted With: Cardiology Call Returned at: 14:52 Industrial Electrical Engineer: Agrees with eval, Agrees with plan Note: Consulted with Dr. Hobbs, who recommends follow up and Holter monitor. Counseled Regarding: Diagnosis, Lab results, Need for follow-up, When/why to return to ED Discharge & Departure Primary Impression: Bradycardia Disposition: Home Discharge Condition All VS Reviewed: Yes Condition: Stable Patient Instructions: Bradycardia (ED) Additional Instructions: Thank you for entrusting us with your care. Your evaluation was reassuring. We spoke with Dr. Hobbs, who recommends that you set up a Holter monitor today following discharge from the ED. Take 50 mg Metoprolol twice daily rather than the current dose. Call your primary care physician to arrange a follow up appointment in the next several days. Return to the emergency department if you develop any new or worsening symptoms such as chest pain, shortness of breath, lightheadedness, weakness, nausea or vomiting. Referrals: Kadei Angel MD (PCP) Scribe Attestation Portions of this note were transcribed by Kristen Maldonado. I, Dr. Gilbert personally performed the history, physical exam and medical decision-making; I reviewed and confirmed the accuracy of the information in the transcribed note. copies to: Kadie Angel MD, Ben M MD Jun 12, 2017 14:30 KRISTEN MALDONADO Jun 12, 2017 15:01 Willie Gilbert MD Jun 12, 2017 14:30 KRISTEN MALDONADO Jun 12, 2017 15:01
[2017-06-12 15:25] VITALS: BP 160/63; PULSE 51; RESP 16; O2SAT 95
== END 2017-06-12 15:26 | disposition home or self-care (01) ==
LOC: SED 11:50
DX: R00.1 Bradycardia, unspecified (principal); I10 Essential (primary) hypertension; E78.5 Hyperlipidemia, unspecified; E03.9 Hypothyroidism, unspecified; I25.10 Atherosclerotic heart disease of native coronary artery without angina pectoris; I25.2 Old myocardial infarction; Z86.73 Personal history of transient ischemic attack (TIA), and cerebral infarction without residual deficits; Z95.1 Presence of aortocoronary bypass graft; Z87.891 Personal history of nicotine dependence; Z79.82 Long term (current) use of aspirin; Z88.0 Allergy status to penicillin; Z88.1 Allergy status to other antibiotic agents; Z88.2 Allergy status to sulfonamides